=== PATIENT | male | born 1955 | race Caucasian/White ===

== ENCOUNTER → 2016-04-05 | Outpatient (CLI) | payer OTHER ==
[~2016-04-05] MED LIST: APIX5TAB PO; CATHETER FLUSH 10 ML SYR IV PRN; DILT120C53 PO; FAMO20TA3 PO; FINA5TAB6 PO; FLEC100T PO; FLEC50TA PO; HYDR-3820 PO; IBUP-30 PO; LOSA100T28 PO; METO50TA2 PO; REGADENOSON 0.4 MG/5 ML SYR (LEXISCAN) IV ONE; SOTA120T PO; WARF10TA44 PO
--- OUTSIDE RECORDS SUMMARY | 2016-04-05 10:38 | XMS REPORT | Continuity of Care Document ---
Author Author [facility] Organization [facility] Address Unknown Phone Unavailable Care Team Providers Care Telephoto Installer Name Role Phone JAX RUBIN MD PCP Insurance Providers Payer Name Policy Number Subscriber Name Relationship Self Pay Pending Jo Apprv [id number] Faby Rios 18 Self / Same As Patient Advance Directives Directive Response Recorded Date/Time Advance Directives No 02/20/16 4:30pm Health Care Power of Chief Station Engineer No 02/20/16 4:30pm Organ Donor No 02/20/16 4:30pm Resuscitation Status DNR-Pt Request 02/20/16 4:30pm Chief Complaint and Reason for Visit Chief Complaint AFIB WITH RVR Reason for Visit A-fib Problems Active Problems Medical Problem Onset Date Status A-fib Unknown Acute Medications Current Home Medications Medication Dose Units Route Directions Days/Qty Instructions Start Date Famotidine 20 Mg Oral Daily 11/17/15 Finasteride 5 Mg 5 Mg Oral Daily 11/17/15 Hydrocodone/Acetaminophen 1 Each 0.5-1 Tab Oral Every 8HRS as needed for Pain 02/20/16 Warfarin Sodium 10 Mg 10 Mg Oral Daily 02/21/16 Sotalol Hcl 120 Mg 120 Mg Oral Twice A Day 60 02/22/16 Past Home Medications Medication Directions Ordered Status Ibuprofen 200 Mg Tablet, 800 Mg Oral Three Times A Day as needed for Pain Discontinued Losartan Potassium 100 Mg Tablet, 100 Mg Oral Daily 11/17/15 Discontinued Metoprolol Tartrate 50 Mg Tablet, 50 Mg Oral Twice A Day 11/20/15 Discontinued Metoprolol Tartrate 50 Mg Tablet, 50 Mg Oral Twice A Day 02/21/16 Discontinued Social History Social History Problem Response Recorded Date/Time Alcohol Use Rarely Uses 02/20/2016 4:30pm Recreational Drug Use No 02/20/2016 4:30pm Recent Foreign Travel No 02/20/2016 4:39pm Recent Infectious Disease Exposure No 02/20/2016 4:30pm Sexually Transmitted Disease No 02/20/2016 4:30pm HIV/AIDS No 02/20/2016 4:30pm Smoking Status Former Smoker 02/20/2016 4:30pm Type Used Cigarettes 02/22/2016 2:33pm Recent Hopitalizations No 02/20/2016 4:30pm Sexually Transmitted Disease No 02/20/2016 4:30pm Hx Sexually Transmitted Disorders No 01/18/2010 3:25pm Query Response Start Date Stop Date Smoking Status Former Smoker Hospital Discharge Instructions No hospital discharge instructions. Plan of Care Discharge Date 02/22/16 10:20am Disposition IP-[facility] TO CODE Instructions/Education Provided Atrial Fibrillation (DC) Prescriptions See Medication Section Follow-up Orders Ekg Tracing Referrals GAYLE TENORIO MD (Unspecified) - 02/27/16 Address: [address] [place] [id number] [phone] Reason(s) for Referral: 02/27/16 @ 2:20 Care Plan and Goals Functional Status Query Response Date Recorded Patient Orientation Person Place Time Situation February 22, 2016 2:33pm Comprehension Ability Understands Concepts February 22, 2016 8:11am Allergies, Adverse Reactions, Alerts No known allergies. Immunizations Name Given Type FLU TRIvalent 5 years - Adult 02/20/16 Administered Vital Signs Acute Vital Signs Vital Response Date/Time Temperature (Fahrenheit) 98.1 degrees F (97.6 - 99.5) 02/22/2016 8:11am Temperature (Calculated Celsius) 36.61615 degrees C (36.4 - 37.5) 02/22/2016 8:11am Temperature Source Tympanic 02/22/2016 8:11am Pulse Rate (adult) 64 bpm (60 - 90) 02/22/2016 10:05am Respiratory Rate 17 bpm (12 - 24) 02/22/2016 10:05am O2 Sat by Pulse Oximetry 93 % (88 - 100) 02/22/2016 10:05am Blood Pressure 136/77 mm Hg 02/22/2016 10:05am Blood Pressure Mean 96 mm Hg 02/22/2016 10:00am Pain Numeric Pain Scale 0-No Pain 02/21/2016 8:00pm Height (Feet) 5 feet 02/20/2016 4:30pm Height (Inches) 10.00 inches 02/20/2016 4:30pm Height (Calculated Centimeters) 177.898109 cm 02/20/2016 4:30pm Weight (Pounds) 246 pounds 02/22/2016 6:00am Weight (Ounces) 0.7 oz 02/21/2016 6:17am Weight (Calculated Grams) 667577.724 gm 02/22/2016 6:00am Weight (Calculated Kilograms) 111.670501 kilograms 02/22/2016 6:00am Calculated BMI 35.6 02/20/2016 4:30pm Results Laboratory Results Test Name Result Units Flags Reference Collection Date/Time Result Date/ Time Comments White Blood Count 6.4 10^3/uL 4.3-11.0 02/21/2016 4:35am 02/21/2016 6: 27am Red Blood Count 5.89 10^6/uL H 4.35-5.85 02/21/2016 4:35am 02/21/2016 6: 27am Hemoglobin 14.2 G/DL 13.3-17.7 02/21/2016 4:35am 02/21/2016 6:27am Hematocrit 44 % 40-54 02/21/2016 4:35am 02/21/2016 6:27am Mean Corpuscular Volume 74 FL L 80-99 02/21/2016 4:35am 02/21/2016 6: 27am Mean Corpuscular Hemoglobin 24 PG L 25-34 02/21/2016 4:35am 02/21/2016 6: 27am Mean Corpuscular Hemoglobin Concent 32 G/DL 32-36 02/21/2016 4:35am 6:27am Red Cell Distribution Width 15.1 % H 10.0-14.5 02/21/2016 4:35am 2015 6:27am Platelet Count 180 10^3/uL 130-400 02/21/2016 4:35am 02/21/2016 6:27am Mean Platelet Volume 11.8 FL H 7.4-10.4 02/21/2016 4:35am 02/21/2016 6: 27am Neutrophils (%) (Auto) 49 % 42-75 02/21/2016 4:35am 02/21/2016 6:27am Lymphocytes (%) (Auto) 36 % 12-44 02/21/2016 4:35am 02/21/2016 6:27am Monocytes (%) (Auto) 13 % H 0-12 02/21/2016 4:35am 02/21/2016 6:27am Eosinophils (%) (Auto) 2 % 0-10 02/21/2016 4:35am 02/21/2016 6:27am Basophils (%) (Auto) 1 % 0-10 02/21/2016 4:35am 02/21/2016 6:27am Neutrophils # (Auto) 3.1 X 10^3 1.8-7.8 02/21/2016 4:35am 02/21/2016 6: 27am Lymphocytes # (Auto) 2.3 X 10^3 1.0-4.0 02/21/2016 4:35am 02/21/2016 6: 27am Monocytes # (Auto) 0.8 X 10^3 0.0-1.0 02/21/2016 4:35am 02/21/2016 6: 27am Eosinophils # (Auto) 0.1 10^3/uL 0.0-0.3 02/21/2016 4:35am 02/21/2016 6 :27am Basophils # (Auto) 0.0 10^3/uL 0.0-0.1 02/21/2016 4:35am 02/21/2016 6: 27am Prothrombin Time 35.1 SEC H 12.2-14.7 02/22/2016 4:20am 02/22/2016 5: 14am INR Comment 3.5 H 0.8-1.4 02/22/2016 4:20am 02/22/2016 5:14am INTERPRETIVE DATA SUGGESTED THERAPEUTIC RANGE FOR INR'S: VENOUS THROMBOSIS, PULMONARY EMBOLISM, OR PREVENTION OF SYSTEMIC EMBOLISM (EG. IN ATRIAL FIBRILLATION): 2.0 - 3.0 MECHANICAL PROSTHETIC HEART VALVES: 2.5 - 3.5* *NOTE: INR'S UP TO 4.5 MAY BE NECESSARY IN SELECTED GROUPS OF HIGH RISK PATIENTS. [employer] [place] [employer] CONSENSUS CONFERENCE ON ANTITHROMBOTIC THERAPY (2000). Activated Partial Thromboplast Time 60 SEC H 24-35 02/20/2016 5:11pm 5:30pm Sodium Level 137 MMOL/L 135-145 02/21/2016 4:35am 02/21/2016 6:45am Potassium Level 4.5 MMOL/L 3.6-5.0 02/21/2016 4:35am 02/21/2016 6:45am Chloride Level 105 MMOL/L 98-107 02/21/2016 4:35am 02/21/2016 6:45am Carbon Dioxide Level 22 MMOL/L 21-32 02/21/2016 4:35am 02/21/2016 6: 45am Anion Gap 10 MMOL/L 5-14 02/21/2016 4:35am 02/21/2016 6:45am Blood Urea Nitrogen 22 MG/DL H 7-18 02/21/2016 4:35am 02/21/2016 6:45am Creatinine 0.85 MG/DL 0.60-1.30 02/21/2016 4:35am 02/21/2016 6:45am BUN/Creatinine Ratio 26 02/21/2016 4:35am 02/21/2016 6:45am Estimat Glomerular Filtration Rate > 60 02/21/2016 4:35am 2015 6:45am GFR INTERPRETIVE DATA UNITS FOR ESTIMATED GFR (eGFR): mL/min/1.73 M2 REFERENCE RANGE FOR ESTIMATED GFR (eGFR) eGFR NORMAL eGFR >60 MODERATELY DECREASED eGFR 30-59 SEVERLY DECREASED eGFR 15-29 KIDNEY FAILURE <15 (OR DIALYSIS) Glucose Level 102 MG/DL 70-105 02/21/2016 4:35am 02/21/2016 6:45am Calcium Level 9.2 MG/DL 8.5-10.1 02/21/2016 4:35am 02/21/2016 6:45am Total Bilirubin 0.6 MG/DL 0.1-1.0 02/21/2016 4:35am 02/21/2016 6:45am Alkaline Phosphatase 41 U/L 40-136 02/21/2016 4:35am 02/21/2016 6:45am Aspartate Amino Transf (AST/SGOT) 145 U/L H 5-34 02/21/2016 4:35am 2015 6:45am Alanine Aminotransferase (ALT/SGPT) 170 U/L H 0-55 02/21/2016 4:35am 6:45am B-Type Natriuretic Peptide 124.7 PG/ML H <100.0 02/20/2016 5:11pm 2015 5:56pm Total Protein 6.8 G/DL 6.4-8.2 02/21/2016 4:35am 02/21/2016 6:45am Albumin 3.6 G/DL 3.2-4.5 02/21/2016 4:35am 02/21/2016 6:45am Thyroid Stimulating Hormone (TSH) 1.65 UIU/ML 0.35-4.94 02/21/2016 4: 35am 02/21/2016 6:15am Procedures Procedure Status Date Provider(s) Tracing only of electrocardiogram Completed 02/20/16 GAYLE TENORIO MD Transesophageal echocardiography with contrast Active 02/21/16 GAYLE TENORIO MD Limited Doppler echocardiography Completed 02/21/16 GAYLE TENORIO MD Doppler echocardiography color flow mapping Completed 02/21/16 GAYLE TENORIO MD Transesophageal echocardiography Completed 02/21/16 GAYLE TENORIO MD Tracing only of electrocardiogram Completed 02/21/16 GAYLE TENORIO MD Tracing only of electrocardiogram Active 02/22/16 GAYLE TENORIO MD Encounters Encounter Location Arrival/Admit Date Discharge/Depart Date Attending Provider Discharged Inpatient [facility] 02/20/16 4:40pm 10:20am GAYLE TENORIO MD Recent Diagnosis A-fib
[2016-04-05 13:05] VITALS: BP 121/85
--- NOTE | 2016-04-06 12:36 | STRESS TEST ---
PROCEDURE PHYSICIAN: ELIDA JOSUE PHARMACOLOGIC NUCLEAR STRESS TEST REPORT DATE OF PROCEDURE: 04/05/2016 PRIMARY PHYSICIAN: Dr. Balderas. DIAGNOSIS: Shortness of breath. PROCEDURE DETAILS: The patient was brought to the stress level after informed consent was taken. All the risks and complications were explained. Lexiscan stress test was performed after informed consent was taken. Low grade exercise was performed. 0.4 mg of Lexiscan was given according to the protocol. Baseline EKG showed sinus rhythm at 139 bpm. Resting sinus rhythm, atrial fibrillation at about 139 bpm. Blood pressure was 121/8 mmHg. Maximum heart rate was 117 bpm. Blood pressure is 152.[address] changes were noted. There were no arrhythmias. There were no symptoms. Radionuclide Isotope was given at peak vasodilatation. 10.6 mCi of Myoview were given at rest and 30.5 mCi Myoview were given at peak imaging. Review of perfusion imaging showed TID of 1.03 with an EF of 37%. Anterior and apical hypokinesis is noted. There is an apical severe small sized apical fixed defect. There is also inferior apical small size moderate intensity reversible defect. CONCLUSION: 1. Pharmacological stress test is negative for ischemia. 2. Mildly reduced LV systolic function is noted with an EF of 37% ; anterior apical hypokinesis. 3. There seems to be in an apical infarct with clari-infarct ischemia. Clinical correlation is recommended. Job ID: [id number] Dictated Date: 04/05/2016 21:13:21 Wing Commander Date: 04/06/2016 12:27:11 / bhavana MUIR
== END ==
LOC: CARD 10:35
PROVIDERS: ATTEND Internal Medicine Interventional Cardiology
DX: I48.0 Paroxysmal atrial fibrillation (principal); I10 Essential (primary) hypertension; G47.30 Sleep apnea, unspecified; R06.02 Shortness of breath
CPT/HCPCS: 78452; 93017

== ENCOUNTER 2016-04-12 10:33 | Day surgery (SDC) | payer OTHER ==
[~2016-04-12] VITALS: Ht 177.8 cm; Wt 108.0 kg
[2016-04-12] VITALS (11 sets, daily range): BP systolic 100–153; BP diastolic 58–118
[~2016-04-12 10:33] MED LIST changes: -APIX5TAB PO; -CATHETER FLUSH 10 ML SYR IV PRN; -DILT120C53 PO; -FLEC100T PO; -FLEC50TA PO; -REGADENOSON 0.4 MG/5 ML SYR (LEXISCAN) IV ONE
--- OUTSIDE RECORDS SUMMARY | 2016-04-12 10:36 | XMS REPORT | Continuity of Care Document ---
Author Author [facility] Organization [facility] Address Unknown Phone Unavailable Care Team Providers Care System Support Developer Name Role Phone JAX RUBIN MD PCP Insurance Providers Payer Name Policy Number Subscriber Name Relationship Self Pay Pending Jo Apprv [id number] Faby Rios 18 Self / Same As Patient Advance Directives Directive Response Recorded Date/Time Advance Directives No 02/20/16 4:30pm Health Care Power of Stereotype Caster No 02/20/16 4:30pm Organ Donor No 02/20/16 [...] of Care Discharge Date 02/22/16 10:20am Disposition IP-[facility] TO CODE Instructions/Education Provided Atrial Fibrillation (DC) Prescriptions See Medication Section Follow-up Orders Ekg Tracing Referrals GAYLE TENORIO MD (Unspecified) - 02/27/16 Address: [address] [place] [id number] [phone] Reason(s) for Referral: 02/27/16 @ 2:20 Care [...] - 99.5) 02/22/2016 8:11am Temperature (Calculated Celsius) 36.92129 degrees C (36.4 - 37.5) 02/22/2016 8:11am [...] 10.00 inches 02/20/2016 4:30pm Height (Calculated Centimeters) 177.715330 cm 02/20/2016 4:30pm Weight (Pounds) 246 pounds 02/22/2016 6:00am Weight (Ounces) 0.7 oz 02/21/2016 6:17am Weight (Calculated Grams) 858641.724 gm 02/22/2016 6:00am Weight (Calculated Kilograms) 111.441838 kilograms 02/22/2016 6:00am Calculated BMI 35.6 02/20/2016 [...] SELECTED GROUPS OF HIGH RISK PATIENTS. [employer] [place] [employer] CONSENSUS CONFERENCE ON [...] Tracing only of electrocardiogram Completed 02/20/16 GAYLE TENOROI MD Transesophageal echocardiography with contrast Active 02/21/16 [...] Discharge/Depart Date Attending Provider Discharged Inpatient [facility] 02/20/16 4:40pm 10:20am GAYLE TENORIO MD Recent Diagnosis A-fib
--- OUTSIDE RECORDS SUMMARY | 2016-04-12 10:37 | XMS REPORT | Continuity of Care Document ---
Author Author [facility] Organization [facility] Address Unknown Phone Unavailable Care Team Providers Care On Car Supervisor Name Role Phone JAX RUBIN MD PCP Insurance Providers Payer Name Policy Number Subscriber Name Relationship Self Pay Pending Jo Apprv [id number] Faby Rios 18 Self / Same As Patient Advance Directives Directive Response Recorded Date/Time Advance Directives No 02/20/16 4:30pm Health Care Power of Security Services Manager No 02/20/16 4:30pm Organ Donor No 02/20/16 [...] of Care Discharge Date 02/22/16 10:20am Disposition IP-[facility] TO CODE Instructions/Education Provided Atrial Fibrillation (DC) Prescriptions See Medication Section Follow-up Orders Ekg Tracing Referrals GAYLE TENORIO MD (Unspecified) - 02/27/16 Address: [address] [place] [id number] [phone] Reason(s) for Referral: 02/27/16 @ 2:20 Care [...] - 99.5) 02/22/2016 8:11am Temperature (Calculated Celsius) 36.89042 degrees C (36.4 - 37.5) 02/22/2016 8:11am [...] 10.00 inches 02/20/2016 4:30pm Height (Calculated Centimeters) 177.369311 cm 02/20/2016 4:30pm Weight (Pounds) 246 pounds 02/22/2016 6:00am Weight (Ounces) 0.7 oz 02/21/2016 6:17am Weight (Calculated Grams) 088898.724 gm 02/22/2016 6:00am Weight (Calculated Kilograms) 111.221957 kilograms 02/22/2016 6:00am Calculated BMI 35.6 02/20/2016 [...] SELECTED GROUPS OF HIGH RISK PATIENTS. [employer] [place] [employer] CONSENSUS CONFERENCE ON [...] Discharge/Depart Date Attending Provider Discharged Inpatient [facility] 02/20/16 4:40pm 10:20am GAYLE TENORIO MD Recent Diagnosis A-fib
[2016-04-12] MEDS ORDERED: LIDOCAINE 1% INJ 20 ML (XYLOCAINE) VIAL ONE (10:40)
[2016-04-12] MEDS ORDERED: NS IV 1000 ML 1,000 ML ONE (10:41)
[2016-04-12] MEDS ORDERED: HEParin (CATH LAB) 2,000 ML IV ONE (10:41)
[2016-04-12 11:18] LABS: MEAN PLATELET VOLUME 11.1 FL (7.4-10.4); RED BLOOD COUNT 6.72 10^6/uL (4.35-5.85); RED CELL DISTRIBUTION WIDTH 15.7 % (10.0-14.5); WHITE BLOOD COUNT 7.3 10^3/uL (4.3-11.0)
[2016-04-12] MEDS: NS IV 1000 ML 1,000 ML IV SCH ×2 (11:20→15:11)
[2016-04-12 11:29] LABS: PROTHROMBIN TIME PATIENT 12.7 SEC (12.2-14.7)
[2016-04-12 11:37] LABS: ALANINE AMINOTRANSFERASE 219 U/L (0-55); ALBUMIN 3.9 G/DL (3.2-4.5); ANION GAP 7 MMOL/L (5-14); ASPARTATE AMINO TRANSFERASE 178 U/L (5-34); BILIRUBIN,TOTAL 0.6 MG/DL (0.1-1.0); BLOOD UREA NITROGEN 15 MG/DL (7-18); BUN/CREATININE RATIO 16; CALCIUM 9.1 MG/DL (8.5-10.1); CARBON DIOXIDE 27 MMOL/L (21-32); CHLORIDE 103 MMOL/L (98-107); CHOLESTEROL 152 MG/DL (< 200); CREATININE SERUM 0.95 MG/DL (0.60-1.30); DIRECT LDL 106 MG/DL (1-129); GFR ESTIMATED > 60; GLUCOSE 94 MG/DL (70-105); POTASSIUM 4.2 MMOL/L (3.6-5.0); SODIUM 137 MMOL/L (135-145); TOTAL PROTEIN 7.5 G/DL (6.4-8.2); TRIGLYCERIDES 115 MG/DL (<150); VLDL CHOLESTEROL 23 MG/DL (5-40)
[2016-04-12] MEDS ORDERED: SOTA120T PO (11:51)
[2016-04-12] MEDS ORDERED: APIX5TAB PO (11:51)
[2016-04-12] MEDS ORDERED: FLU TRIvalent (5 YOA+) 2016-17 (AFLURIA) 0.5 ML IM ONE (12:00)
[2016-04-12] MEDS ORDERED: fentaNYL INJECTION 100 MCG/2 ML AMP ONE (13:34)
[2016-04-12] MEDS ORDERED: diphenhydrAMINE 50 MG/ML INJ (BENADRYL) ONE (13:35)
[2016-04-12] MEDS ORDERED: VERAPAMIL 5 MG/2 ML (CALAN) VIAL IV ONE ×2 (13:35→15:10)
[2016-04-12] MEDS ORDERED: MIDAZOLAM 5 MG/5 ML (VERSED) VIAL ONE (13:35)
[2016-04-12] MEDS ORDERED: NITROGLYCERIN DRIP 25 MG/D5W 250 ML IV ONE (13:35)
[2016-04-12] MEDS ORDERED: HEParin 1000 UNIT/ML (10ML VIAL) FOR BOLUS ONE (13:35)
[2016-04-12] MEDS ORDERED: meTOprolol 5 MG/5 ML (LOPRESSOR) VIAL ONE (14:52)
--- NOTE | 2016-04-12 15:23 | Cardiac Procedure Note-CS/ASA ---
Pre-Procedure Note Pre-Op Procedure Note H&P Reviewed The H&P was reviewed, patient examined and no changes noted. Date H&P Reviewed: Apr 12, 2016 Time H&P Reviewed: 13:00 Conscious Sedation Pre-Proced Time Reviewed: 13:00 ASA Class: 2 Airway Mallampati Classification: ([place] appropriate class) I. II. III, IV Lungs Heart ASA score ASA 1: a normal healthy patient ASA 2: a patient with a mild systemic disease (mid diabetes, controlled hypertension, obesity ASA 3: a patient with a severe systemic disease that limits activity (angina , COPD, prior Myocardial infarction) ASA 4: a patient with an incapacitating disease that is a constant threat to life (CHF, renal failure) ASA 5: a moribund patient not expected to survive 24 hrs. (ruptured aneurysm) ASA 6: a declared brain patient whose organs are being harvested. For emergent operations, add the letter E after the classification Grade 1 Sedation Plan: Analgesia, Amnesia, Plan communicated to team members, Discussed options with patient/fam, Discussed risks with patient/fam Note The patient is an appropriate candidate to undergo the planned procedure, sedation, and anesthesia. The patient immediately re-assessed prior to indication. Roger JOSUE MD Apr 12, 2016 3:23 pm
[2016-04-12] MEDS ORDERED: NS IV 1000 ML 1,000 ML IV SCH (15:24)
--- NOTE | 2016-04-12 15:24 | Progress Note-Post Operative ---
Post-Operative Progess Note Pre-Operative Diagnosis AF, positive nuclear stress test Post-Operative Diagnosis patent epicardial coronary arteries Post-Op Procedure Note Date of Procedure: Apr 12, 2016 Name of Procedure: coronary angiography, [facility] Procedure Note/Findings patent arteries, LVEDP 22mmhg Anesthesia Type local anesthesia, conscious sedation Estimated blood loss (mL): 10 cc Packing: none Specimen(s) collected none Roger JOSUE MD Apr 12, 2016 3:24 pm
--- NOTE | 2016-04-12 15:28 | Discharge Inst-Post CATH ---
Discharge Inst-CATH Post Cardiac Cath D/C Inst Follow Up/Plan follow up with Dr Sagastume 3-4 weeks CARDIAC CATH DISCHARGE INSTRUCTIONS *Hold Metformin for 48 hours post heart cath. ACTIVITY * Go Home directly and rest. * Limit activity of the leg (or wrist if it was used) for 7 days including aerobics, swimming, jogging, bicycling, etc. * Restrict stair-climbing for 7 days if possible, if not, climb up with your non -cath leg, then bring together on the same step. * Avoid lifting, pushing, pulling or excessive movement of the affected extremity for 7 days. * Customary sexual activity may be resumed after 2 days-use caution not to use a position that strains or causes pain to the affected extremity. * No driving for 24 hours. * NO SMOKING. * Avoid straining for bowel movements for 7 days. * Gentle walking on level ground is allowed. * Returning to work will depend on the type of procedure and the results. Your doctor will discuss this with you. CALL YOUR DOCTOR FOR ANY OF THE FOLLOWING: *If bleeding from the puncture site occurs- Apply gentle pressure to site with clean cloth and call your doctor or EMS. * If a knot or lump forms under the skin, increases in size, or causes pain. * If bruising appears to be worsening or moving further down your leg instead of disappearing. * Temperature above 101 F. CARE OF YOUR GROIN INCISION; * Bruising or purple discoloration of the skin near the puncture site is common. * You may shower only, no bathtub bathing for 5 days. Be careful to avoid slipping as your leg may feel stiff. * If a closure device was used on your femoral artery, please see the attached guide regarding care of the device and your leg. * REMOVE the dressing from your groin the next day after your procedure in the shower. CARE OF YOUR WRIST INCISION; * Bruising or purple discoloration of the skin near the puncture site is common. * You may shower. * DO NOT submerge wrist. * Remove dressing in 24 hours. Roger SAGASTUME MD Apr 12, 2016 3:28 pm
[2016-04-12] MEDS ORDERED: PATIENT MAY USE OWN MEDS, ALL PO SCH (15:30)
--- NOTE | 2016-04-12 15:30 | Cardiology Discharge Summary ---
Diagnosis/Chief Complaint Date of Admission 04/12/2016 Date of Discharge 04/12/2016 Admission Diagnosis atrial fibrillation, abnormal nuclear stress test Final/Discharge Diagnosis atrial fibrillation, patent epicardial coronary arteries Chief Complaint/HPI Chief Complaint/HPI shortness of breath, palpitations Discharge Summary Procedures None. Discharge Physical Examination stable Hospital Course stable Pending Labs Laboratory Tests 04/12/16 11:11: Activated Partial Thromboplast Time 30, Alanine Aminotransferase (ALT/SGPT) 219 , Albumin 3.9, Alkaline Phosphatase 60, Anion Gap 7, Aspartate Amino Transf (AST /SGOT) 178, BUN/Creatinine Ratio 16, Blood Urea Nitrogen 15, Calcium Level 9.1, Carbon Dioxide Level 27, Chloride Level 103, Cholesterol Level 152, Creatinine 0.95, Estimat Glomerular Filtration Rate > 60, Glucose Level 94, HDL Cholesterol 26, Hematocrit 50, Hemoglobin 15.9, INR Comment 1.0, LDL Cholesterol Direct 106, Mean Corpuscular Hemoglobin 24, Mean Corpuscular Hemoglobin Concent 32, Mean Corpuscular Volume 74, Mean Platelet Volume 11.1, Platelet Count 216, Potassium Level 4.2, Prothrombin Time 12.7, Red Blood Count 6.72, Red Cell Distribution Width 15.7, Sodium Level 137, Total Bilirubin 0.6, Total Protein 7.5, Triglycerides Level 115, VLDL Cholesterol 23, White Blood Count 7.3 Discussion & Recommendations Discussion patent epicardial coronary arteries, atrial fibrillation management. Follow up appt.: Dr. Sagastume in 3-4 weeks Dicharge Diet: Cardiac Diet Activity as Tolerated: Yes Home Medications Reviewed patient Home Medication Reconciliation Form Discharge Home Medications: Reviewed and agree with Discharge Medication list on patient's Discharge Instruction sheet Condition at discharge stable Instructions to patient/family follow up with Dr Sagastume 3-4 weeks Roger SAGASTUME MD Apr 12, 2016 3:30 pm
--- NOTE | 2016-04-13 08:34 | CARDIAC CATHETERIZATION ---
PROCEDURE PHYSICIAN: ELIDA JOSUE DATE OF PROCEDURE: 04/12/2016 REFERRING PHYSICIAN: Dr. Eastman. INDICATION: Atrial fibrillation, abnormal nuclear stress test. PREOPERATIVE DIAGNOSIS: Atrial fibrillation, abnormal nuclear stress test. POSTOPERATIVE DIAGNOSES: Atrial fibrillation, patent epicardial coronary arteries. HISTORY: Mr. Rios is a 60-year-old gentleman with a history of atrial fibrillation. The decision was to pursue rhythm control therapy. Therefore class 1C antiarrhythmic therapy was recommended. Coronary artery disease needed to be ruled before we started antiarrhythmic therapy. Nuclear stress test was performed, which showed reversible ischemia. Coronary angiography was therefore recommended. PROCEDURE PERFORMED: 1. Right upper extremity angiography. 2. Coronary angiography. 3. Left heart catheterization. COMPLICATIONS: None. SPECIMENS: None. ESTIMATED BLOOD LOSS: 10 mL. FINAL RESULTS: Excellent ANTICOAGULATION: Heparin. CONTRAST: 90 mL of Omnipaque. FLUOROSCOPY TIME: 6.8 minutes. FLUOROSCOPY DOSE: 462 mGy PROCEDURE DETAILS: The patient was brought to the Crisis Intervention Counselor after informed consent was taken. All the risks and complications were explained in detail. The patient was draped and prepped in the usual sterile fashion. We gained access in the right radial artery with a 6-[place] sheath. Catheterization was performed with a Jorge catheter. We had difficulty in advancing the guidewire therefore right upper extremity angiography was performed. FINDINGS: 1. Left main: Patent. 2. LAD: Small vessel however, there was no significant focal stenosis. 3. Left circumflex artery: Dominant, patent. 4. RCA: Nondominant, no significant disease. 5. Cardiac catheterization: Aortic pressure 107/83 mmHg. LV pressure 102/15 mmHg. LVEDP 22 mmHg. LV gram was done during atrial fibrillation however which showed preserved LV systolic function. There was no gradient across the aortic valve. There is no significant wall motion abnormalities. 6. Right upper extremity angiogram was performed due to a difficulty in advancing the guidewire. Left upper extremity angiogram showed significant tortuosity in the branch of the brachial artery with spasm noted in the radial artery as well as in the branch to the brachial artery. CONCLUSION: 1. Patent epicardial coronary artery disease. 2. Atrial fibrillation with rapid ventricular rate. 3. Continue primary prevention therapy for cardiovascular disease. Job ID: [id number] Dictated Date: 04/12/2016 16:24:46 Contract Administrator Date: 04/13/2016 08:23:01 / bhavana MUIR
== END 2016-04-12 18:45 | disposition home or self-care (01) ==
LOC: CATH 10:33 → ICU 15:40 → CATH 18:45
PROVIDERS: ATTEND Internal Medicine Interventional Cardiology
DX: R94.39 Abnormal result of other cardiovascular function study (principal); I48.91 Unspecified atrial fibrillation; I10 Essential (primary) hypertension; G47.30 Sleep apnea, unspecified; Z79.01 Long term (current) use of anticoagulants; Z79.899 Other long term (current) drug therapy; Z87.891 Personal history of nicotine dependence
CPT/HCPCS: 36415; 80053; 80061; 85027; 85610; 85730; 87081; 93458

== ENCOUNTER 2016-05-03 08:09 | Day surgery (SDC) | payer OTHER ==
[~2016-05-03] VITALS: Ht 177.8 cm; Wt 108.0 kg
[~2016-05-03 08:09] MED LIST changes: +APIX5TAB PO
--- OUTSIDE RECORDS SUMMARY | 2016-05-03 08:13 | XMS REPORT | Continuity of Care Document ---
Author Author [facility] Organization [facility] Address Unknown Phone Unavailable Care Team Providers Care Spa Manager Name Role Phone JAX RUBIN MD PCP Insurance Providers Payer Name Policy Number Subscriber Name Relationship Self Pay Pending Jo Apprv [id number] Faby Rios 18 Self / Same As Patient Advance Directives Directive Response Recorded Date/Time Advance Directives No 04/12/16 11:18am Health Care Power of Provider Scribe No 04/12/16 11:18am Organ Donor No 04/12/16 11:18am Resuscitation Status Full Code 04/12/16 11:18am Problems Active Problems Medical Problem Onset Date Status A-fib Unknown Acute Medications Current Home Medications Medication Dose Units Route Directions Days/Qty Instructions Start Date Famotidine 20 Mg Oral Bedtime as needed for Indigestion 11/17/15 Hydrocodone/Acetaminophen 1 Each 0.5-1 Tab Oral Every 8HRS as needed for Pain 02/20/16 Sotalol Hcl 120 Mg 120 Mg Oral Twice A Day 04/12/16 Apixaban 5 Mg 5 Mg Oral Twice A Day 04/12/16 Past Home Medications Medication Directions Ordered Status Ibuprofen 200 Mg Tablet, 800 Mg Oral Three Times A Day as needed for Pain Discontinued Finasteride 5 Mg Tablet, 5 Mg Oral Daily 11/17/15 Discontinued Losartan Potassium 100 Mg Tablet, 100 Mg Oral Daily 11/17/15 Discontinued Metoprolol Tartrate 50 Mg Tablet, 50 Mg Oral Twice A Day 11/20/15 Discontinued Metoprolol Tartrate 50 Mg Tablet, 50 Mg Oral Twice A Day 02/21/16 Discontinued Warfarin Sodium 10 Mg Tablet, 10 Mg Oral Daily 02/21/16 Discontinued Sotalol Hcl 120 Mg Tablet, 120 Mg Oral Twice A Day 02/22/16 Discontinued Social History Social History Problem Response Recorded Date/Time Recent Foreign Travel No 04/12/2016 11:19am Recent Infectious Disease Exposure No 04/12/2016 11:19am Sexually Transmitted Disease No 02/20/2016 4:30pm HIV/AIDS No 02/20/2016 4:30pm Smoking Status Former Smoker 04/12/2016 11:19am Type Used Cigarettes 04/12/2016 7:48pm Recent Hopitalizations No 02/20/2016 4:30pm Sexually Transmitted Disease No 02/20/2016 4:30pm Hx Sexually Transmitted Disorders No 01/18/2010 3:25pm Query Response Start Date Stop Date Smoking Status Former Smoker Hospital Discharge Instructions Patient Instructions Physician Instructions Follow Up/Plan follow up with Dr Josue 3-4 weeks CARDIAC CATH DISCHARGE INSTRUCTIONS *Hold Metformin for 48 hours post heart cath. ACTIVITY * Go Home directly and rest. * Limit activity of the leg (or wrist if it was used) for 7 days including aerobics, swimming, jogging, bicycling, etc. * Restrict stair-climbing for 7 days if possible, if not, climb up with your non-cath leg, then bring together on the same step. * Avoid lifting, pushing, pulling or excessive movement of the affected extremity for 7 days. * Customary sexual activity may be resumed after 2 days-use caution not to use a position that strains or causes pain to the affected extremity. * No driving for 24 hours. * NO SMOKING. * Avoid straining for bowel movements for 7 days. * Gentle walking on level ground is allowed. * Returning to work will depend on the type of procedure and the results. Your doctor will discuss this with you. CALL YOUR DOCTOR FOR ANY OF THE FOLLOWING: *If bleeding from the puncture site occurs- Apply gentle pressure to site with clean cloth and call your doctor or EMS. * If a knot or lump forms under the skin, increases in size, or causes pain. * If bruising appears to be worsening or moving further down your leg instead of disappearing. * Temperature above 101 F. CARE OF YOUR GROIN INCISION; * Bruising or purple discoloration of the skin near the puncture site is common. * You may shower only, no bathtub bathing for 5 days. Be careful to avoid slipping as your leg may feel stiff. * If a closure device was used on your femoral artery, please see the attached guide regarding care of the device and your leg. * REMOVE the dressing from your groin the next day after your procedure in the shower. CARE OF YOUR WRIST INCISION; * Bruising or purple discoloration of the skin near the puncture site is common. * You may shower. * DO NOT submerge wrist. * Remove dressing in 24 hours. Plan of Care Discharge Date 04/12/16 6:45pm Instructions/Education Provided Heart Healthy Diet Prescriptions See Medication Section Functional Status Query Response Date Recorded Patient Orientation Person Place Time Situation Normal For Age April 12, 2016 7:48pm Allergies, Adverse Reactions, Alerts No known allergies. Immunizations No immunization records. Vital Signs Acute Vital Signs Vital Response Date/Time Temperature (Fahrenheit) 98.4 degrees F (97.6 - 99.5) 04/12/2016 6:45pm Temperature (Calculated Celsius) 36.03055 degrees C (36.4 - 37.5) 04/12/2016 3:45pm Temperature Source Tympanic 04/12/2016 6:45pm Pulse Rate (adult) 89 bpm (60 - 90) 04/12/2016 6:45pm Respiratory Rate 20 bpm (12 - 24) 04/12/2016 6:45pm O2 Sat by Pulse Oximetry 98 % (88 - 100) 04/12/2016 6:45pm Blood Pressure 128/61 mm Hg 04/12/2016 6:45pm Blood Pressure Mean 83 mm Hg 04/12/2016 6:30pm Pain Numeric Pain Scale 0-No Pain 04/12/2016 6:45pm Height (Feet) 5 feet 04/12/2016 11:18am Height (Inches) 10.00 inches 04/12/2016 11:18am Height (Calculated Centimeters) 177.450525 cm 04/12/2016 11:18am Weight (Pounds) 238 pounds 04/12/2016 11:18am Weight (Ounces) 0.0 oz 04/12/2016 11:18am Weight (Calculated Grams) 782043.99 gm 04/12/2016 11:18am Weight (Calculated Kilograms) 107.825864 kilograms 04/12/2016 11:18am Calculated BMI 34.2 04/12/2016 11:18am Capillary Refill Capillary Refill Less Than 3 Seconds 04/12/2016 6:40pm Results Pending Laboratory Results Test Name Collection Date/Time Procedures No known history of procedures. Encounters Encounter Location Arrival/Admit Date Discharge/Depart Date Attending Provider Departed [facility] 04/12/16 10:33am 04/12/16 6:45pm Roger JOSUE MD Registered Clinic [facility] 04/05/16 10:35am Roger JOSUE MD
--- OUTSIDE RECORDS SUMMARY | 2016-05-03 08:13 | XMS REPORT | Continuity of Care Document ---
Author Author [facility] Organization [facility] Address Unknown Phone Unavailable Care Team Providers Care Svp Digital Ad Sales Name Role Phone JAX RUBIN MD PCP Insurance Providers Payer Name Policy Number Subscriber Name Relationship Self Pay Pending Jo Apprv [id number] Faby Rios 18 Self / Same As Patient Advance Directives Directive Response Recorded Date/Time Advance Directives No 04/12/16 11:18am Health Care Power of Wire Machine Cutter No 04/12/16 11:18am Organ Donor No 04/12/16 [...] - 99.5) 04/12/2016 6:45pm Temperature (Calculated Celsius) 36.60400 degrees C (36.4 - 37.5) 04/12/2016 3:45pm [...] 10.00 inches 04/12/2016 11:18am Height (Calculated Centimeters) 177.025962 cm 04/12/2016 11:18am Weight (Pounds) 238 pounds 04/12/2016 11:18am Weight (Ounces) 0.0 oz 04/12/2016 11:18am Weight (Calculated Grams) 157526.99 gm 04/12/2016 11:18am Weight (Calculated Kilograms) 107.635706 kilograms 04/12/2016 11:18am Calculated BMI 34.2 04/12/2016 11:18am Capillary Refill Capillary Refill Less Than 3 Seconds 04/12/2016 6:40pm Results Pending Laboratory Results Test Name Collection Date/Time Procedures No known history of procedures. Encounters Encounter Location Arrival/Admit Date Discharge/Depart Date Attending Provider Departed [facility] 04/12/16 10:33am 04/12/16 6:45pm Roger JOSUE MD Registered Clinic [facility] 04/05/16 10:35am Roger JOSUE MD
[2016-05-03] MEDS ORDERED: NS IV 1000 ML 1,000 ML ONE (08:19)
[2016-05-03 08:35] VITALS: BP 150/116
[2016-05-03] MEDS ORDERED: proPOfol 200 MG/20 ML (DIPRIVAN) VIAL IV ONE (08:45)
[2016-05-03] MEDS ORDERED: NS IV 1000 ML 1,000 ML IV SCH (08:45)
[2016-05-03] MEDS ORDERED: MIDAZOLAM 5 MG/5 ML (VERSED) VIAL ONE (08:47)
[2016-05-03] MEDS ORDERED: DILT120C53 PO (08:52)
[2016-05-03 09:45] VITALS: BP 135/103
[2016-05-03] MEDS ORDERED: FLU TRIvalent (5 YOA+) 2016-17 (AFLURIA) 0.5 ML IM ONE (09:45)
[2016-05-03 09:52] VITALS: BP 126/87
--- NOTE | 2016-05-03 09:56 | Progress Note-Standard ---
Standard Progress Note Progress Notes/Assess & Plan Progress/Assessment & Plan consult for sedation for cardioversion pt chart reviewed 60mg propofol and 2mg versed given iv. pt tolerated procedure well start time 45 end time 50 report to vianey corn lab technician. airway intact KVNG SALAZAR CRNA May 03, 2016 09:56
[2016-05-03 10:03] VITALS: BP 102/62
[2016-05-03 10:54] VITALS: BP 103/72
--- NOTE | 2016-05-03 14:20 | Cardiac Procedure Note-CS/ASA ---
Pre-Procedure Note Pre-Op Procedure Note H&P Reviewed The H&P was reviewed, patient examined and no changes noted. Date H&P Reviewed: May 03, 2016 Time H&P Reviewed: 08:30 Conscious Sedation Pre-Proced Time Reviewed: 08:30 ASA Class: 3 Airway Mallampati Classification: (grand traverse appropriate class) I. II. III, IV Lungs Heart ASA score ASA 1: a normal healthy patient ASA 2: a patient with a mild systemic disease (mid diabetes, controlled hypertension, obesity ASA 3: a patient with a severe systemic disease that limits activity (angina , COPD, prior Myocardial infarction) ASA 4: a patient with an incapacitating disease that is a constant threat to life (CHF, renal failure) ASA 5: a moribund patient not expected to survive 24 hrs. (ruptured aneurysm) ASA 6: a declared brain patient whose organs are being harvested. For emergent operations, add the letter E after the classification Grade 1 Sedation Plan: Analgesia, Amnesia, Plan communicated to team members, Discussed options with patient/fam, Discussed risks with patient/fam Note The patient is an appropriate candidate to undergo the planned procedure, sedation, and anesthesia. The patient immediately re-assessed prior to indication. Roger JOSUE MD May 03, 2016 2:20 pm
--- NOTE | 2016-05-03 14:21 | Progress Note-Post Operative ---
Post-Operative Progess Note Pre-Operative Diagnosis atrial fibrillation Post-Operative Diagnosis direct external electrical cardioversion, converted to sinus rhythm. Post-Op Procedure Note Date of Procedure: May 03, 2016 Name of Procedure: direct external electrical cardioversion Procedure Note/Findings presented with atrial fibrillation with rapid ventricular rate,successful 200 J synchronized shock, converted to sinus rhythm. Normal neurological exam on discharge. Anesthesia Type please see anesthesia note Estimated blood loss (mL): none Packing: none Specimen(s) collected none Roger JOSUE MD May 03, 2016 2:21 pm
--- NOTE | 2016-05-06 23:27 | PROCEDURE REPORT ---
PROCEDURE PHYSICIAN: ELIDA JOSUE DATE OF PROCEDURE: 05/03/2016 DIRECT EXTERNAL ELECTRICAL CARDIOVERSION: INDICATION: Atrial fibrillation with rapid ventricular rate. PREOPERATIVE DIAGNOSIS: Atrial fibrillation with rapid ventricular rate. POSTOPERATIVE DIAGNOSIS: Sinus rhythm, successful electrical cardioversion. HISTORY: Mr. Rios is a 60-year-old gentleman with history of atrial fibrillation with rapid ventricular rate. He was referred for management and evaluation of atrial fibrillation. He was started on sotalol therapy. She was also on oral anticoagulation uninterrupted for at least a month. Elective direct electrical cardioversion was planned. ANESTHESIA: By anesthesia service. COMPLICATIONS: None. SPECIMENS: None. CONTRAST: None. FLUOROSCOPY: None. PROCEDURE DETAILS: The patient was brought to the [facility] after informed consent was taken. All the risks and complications were explained including the risk of stroke. At electrical cardioversion was carried out with anesthesia support with propofol. 200 joules of synchronized shock was delivered through external patches which promptly restore sinus rhythm. The patient tolerated the procedure well. The patient did not have any neurological complication. CONCLUSION: 1. Successful cardioversion. 2. Continue oral anticoagulation and sotalol. 3. Follow-up in the office. Job ID: [id number] Dictated Date: 05/03/2016 14:28:11 Running Specialist Date: 05/06/2016 23:24:56 / [email or web address]
== END 2016-05-03 10:58 | disposition home or self-care (01) ==
LOC: CATH 08:09
PROVIDERS: ATTEND Internal Medicine Interventional Cardiology
DX: I48.91 Unspecified atrial fibrillation (principal); Z79.01 Long term (current) use of anticoagulants; Z79.899 Other long term (current) drug therapy; Z87.891 Personal history of nicotine dependence
CPT/HCPCS: 92960; 93005

== ENCOUNTER 2016-05-29 10:30 | Day surgery (SDC) | payer OTHER ==
[~2016-05-29] VITALS: Ht 177.8 cm; Wt 111.6 kg
[2016-05-29] VITALS (12 sets, daily range): BP systolic 109–175; BP diastolic 61–132
[~2016-05-29 10:30] MED LIST changes: +DILT120C53 PO; +PATIENT MAY USE OWN MEDS, ALL MC SCH
--- OUTSIDE RECORDS SUMMARY | 2016-05-29 10:59 | XMS REPORT | Continuity of Care Document ---
Author Author [facility] Organization [facility] Address Unknown Phone Unavailable Care Team Providers Care Audio Visual Manager Name Role Phone JAX RUBIN MD PCP Insurance Providers Payer Name Policy Number Subscriber Name Relationship Self Pay Pending Jo Apprv [id number] Faby Rios 18 Self / Same As Patient Advance Directives Directive Response Recorded Date/Time Advance Directives No 04/12/16 11:18am Health Care Power of Business Account Manager No 04/12/16 11:18am Organ Donor No 04/12/16 [...] - 99.5) 04/12/2016 6:45pm Temperature (Calculated Celsius) 36.15704 degrees C (36.4 - 37.5) 04/12/2016 3:45pm [...] 10.00 inches 04/12/2016 11:18am Height (Calculated Centimeters) 177.054504 cm 04/12/2016 11:18am Weight (Pounds) 238 pounds 04/12/2016 11:18am Weight (Ounces) 0.0 oz 04/12/2016 11:18am Weight (Calculated Grams) 652559.99 gm 04/12/2016 11:18am Weight (Calculated Kilograms) 107.957309 kilograms 04/12/2016 11:18am Calculated BMI 34.2 04/12/2016 11:18am Capillary Refill Capillary Refill Less Than 3 Seconds 04/12/2016 6:40pm Results Pending Laboratory Results Test Name Collection Date/Time Procedures No known history of procedures. Encounters Encounter Location Arrival/Admit Date Discharge/Depart Date Attending Provider Departed Surgical Day [facility] 04/12/16 10:33am 04/12/16 6:45pm Roger JOSUE MD Registered Clinic [facility] 04/05/16 10:35am Roger JOSUE MD
[2016-05-29] MEDS ORDERED: CATHETER FLUSH 10 ML SYR IV PRN (11:00)
[2016-05-29] MEDS ORDERED: FLU TRIvalent (5 YOA+) 2016-17 (AFLURIA) 0.5 ML IM ONE (11:30)
[2016-05-29] MEDS: DILTIAZEM DRIP 100 MG in SODIUM CHLORIDE (ADD-VANTAGE) 100 ML IV SCH ×2 (11:37→17:26)
[2016-05-29] MEDS ORDERED: DILTIAZEM 25 MG/5 ML INJ (CARDIZEM) VIAL ONE (12:09)
[2016-05-29] MEDS: APIXABAN 5 MG (ELIQUIS) TABLET PO NR ×3 (12:30→17:31)
[2016-05-29] MEDS: FLECAINIDE 50 MG TAB PO SCH ×3 (12:30→20:16)
--- NOTE | 2016-05-29 13:16 | Electrophysiology Consultation ---
HPI-Cardiology Cardiology Consultation: Date of Consultation 05/29/16 Date of Admission Attending Physician Mable Eastman MD Admitting Physician Chirag Balderas MD Consulting Physician Roger SAGASTUME MD HPI: Chief Complaint: Palpitations This is a 60-year-old gentleman with history of paroxysmal atrial fibrillation on flecainide and Cardizem. He presents to Dr. Eastman's office with atrial fibrillation with rapid ventricular rate. Direct admission for further management. Patient complains of palpitations, however, denies any syncope, near-syncope, chest pain or shortness of breath. Review of Systems-Cardiology Review of Systems Constitutional: No As described under HPI, No no symptoms reported, No chills, No fever, No lightheadedness, No malaise, No tiredness, No weight loss, No weight gain, No other Eyes: No As described under HPI, No no symptoms reported, No blindness, No blurred vision, No contact lenses, No drainage, No decreased acuity, No foreign body sensation, No glasses, No inflammation, No pain, No photophobia, No previous injury, No shadows, No tunnel vision, No other, No vision change Ears/Nose/Throat: No As described under HPI, No no symptoms reported, No chronic hearing loss, No epistaxis, No ear discharge, No ear pain, No loose teeth, No mouth pain, No mouth swelling, No nasal drainage, No nose pain, No recent hearing loss, No throat pain, No throat swelling, No ulcerations, No other Respiratory: No no symptoms reported, No As described under HPI, No cough, No orthopnea, No shortness of breath, No SOB with excertion, No SOB at rest, No stridor, No wheezing, No other Cardiovascular: irregular heart rate palpitations Gastrointestinal: No no symptoms reported, No As described under HPI, No abdomen distended, No abdominal pain, No blood streaked bowels, No constipation , No diarrhea, No difficulty swallowing, No nausea, No poor appetite, No poor fluid intake, No rectal bleeding, No vomiting, No other, No nausea/vomiting/ diarrhea, No stool coloration changes Genitourinary: No no symptoms reported, No As described under HPI, No burning, No dysuria, No discharge, No frequency, No flank pain, No hematuria, No incontinence, No pain, No urgency, No other, No urine frequency changes, No urine coloration changes Musculoskeletal: No no symptoms reported, No As describe under HPI, No back pain, No gout, No joint pain, No joint swelling, No muscle pain, No muscle stiffness, No neck pain, No other Skin: No no symptoms reported, No As described under HPI, No change in color, No change in hair/nails, No dryness, No lesions, No lumps, No rash, No other, No skin related problems, No ulcerations, No rash on exposed areas, No ulcerations on exposed areas Psychiatric/Neurological: No As described under HPI, No anxiety, No depression , No emotional problems, No focal weakness, No headache, No no symptoms reported , No numbness, No other, No pre-existing deficit, No seizure, No syncope, No tingling, No tremors, No weakness Hematologic: No no symptoms reported, No As described under HPI, No anemia, No blood clots, No easy bleeding, No easy bruising, No swollen glands, No other, No bleeding abnormalities [facility]-Datag[facility]-Klew[facility] Hx Patient Social History Alcohol Use: Occasionally Uses Recreational Drug Use: Yes (YEARS AGO) Type Used: Cigarettes Recent Foreign Travel: No Recent Infectious Disease Expo: No Hospitalization with Isolation: Denies Physical Abuse Screen: No Sexual Abuse: No Immunizations Up To Date Tetanus Booster (TDap): Unknown Past Medical History PMH As described under Assessment. Allergies and Home Medications Allergies Coded Allergies: No Known Drug Allergies (Unverified , 01/16/10) Home Medications Apixaban 5 Mg Tablet 5 MG PO BID (Reported) Diltiazem HCl 120 Mg Cap.er.24h 120 MG PO DAILY (Reported) Famotidine 20 Mg Tablet 20 MG PO HS PRN PRN INDIGESTION (Reported) Hydrocodone/Acetaminophen 1 Each Tablet 0.5-1 TAB PO EVERY 8-12 HOURS PRN PRN PAIN (Reported) Sotalol HCl 120 Mg Tablet 120 MG PO BID (Reported) Physical Exam-Cardiology Physical Exam Vital Signs/I&O Vital Sign - Last 12Hours 05/29/16 05/29/16 11:10 11:37 Pulse 146 133 Resp 20 B/P 141/81 Pulse Ox 97 Capillary Refill : Constitutional: No appears stated age, No AAO x 3, No apparent distress, No PERRL, No well-developed, No well-nourished, No other HEENT: No PERRL, No normal ENT inspection, No TMs normal, No pharynx normal, No scleral icterus (R), No scleral icterus (L), No pale conjunctivae (R), No pale conjunctivae (L), No photophobia, No TM abnormal (R), No TM abnormal (L), No pharyngeal erythema, No tonsillar exudate, No other, No discharge, No EOMI, No hearing is well preserved, No hard of hearing, No oral hygience is good, No ulceration, No xanthelasmas are seen Neck: No non-tender, No full range of motion, No supple, No normal inspection, No carotid bruit, No limited range of motion, No lymphadenopathy (R), No lymphadenopathy (L), No tender lateral, No tender midline, No thyromegaly, No other, No carotid pulses are 2 + bilaterally, No with good upstrokes Respiratory: No accessory muscle use, No respiratory distress, No chest tender , No chest expansion is symmetric, No chest is bilaterally symmetric, No lungs clear to percussion, No lungs clear to auscultation, No crackles, No rhonchi, No rales, No stridor, No wheezing, No pleural rub, No other Cardiovascular: No regular rate-rhythm, irregularly irregularNo extra beats, No parasternal heave is noted, No JVD, No edema, No bradycardia, tachycardiaNo point of maximal impulse, No cardiac thrills are palpable, No S1 and S2, No gallop/S3, No gallop/S4, No diastolic murmur, No systolic murmur, No friction rub, No click, No other Gastrointestinal: No tender, No soft, No round, No distended, No pulsatile mass , No organomegaly, No guarding, No rebound, No tenderness, No hernia, No mass, No audible bowel sounds, No abnormal bowel sounds, No abdominal bruits, No spleenomegaly, No other Rectal: deferred Extremities: No normal range of motion, No non-tender, No normal inspection, No pedal edema, No calf tenderness, No normal capillary refill, No pelvis stable , No calf tenderness, No inflammation, No pedal edema, No slow capillary refill , No swelling, No other, No abrasion, No clubbing, No cyanosis, No ecchymosis, No laceration, No no lower extremity edema bilateral, No significant edema, No tenderness, No wound Neurologic/Psychiatric: No hog room supervisor II-XII nml as tested, No no motor/sensory deficits, No alert, No normal mood/affect, No oriented x 3, No abnormal cerebellar tests, No abnormal hog room supervisor II-XII, No abnormal gait, No aphasia, No EOM palsy, No facial droop, No motor weakness, No sensory deficit, No depressed affect, No disoriented x 3, No other, No grossly intact, No power is 5/5 both on sides ECG Impression ECG Initial ECG Impression: Atrial Fibrillation w/RVR A/P-Cardiology Assessment/Admission Diagnosis Atrial fibrillation with rapid ventricular rate Plan Patient seen on the request of Dr. Eastman as an EP consult. Atrial defibrillation with rapid ventricular rate; increase the dose of Cardizem and flecainide. Patient has been on uninterrupted Eliquis for the last one month. Direct electrical cardioversion will be planned for tomorrow. Case discussed with Dr. Eastman. Thank you for your consultation. Please call me if you have any questions. Lanny Sagastume MD, [facility] Cardiac Electrophysiology Clinical Quality Measures DVT/VTE Risk/Contraindication: Risk Factor Score Per Nursin RFS Level Per Nursing on Admit: 3=High Roger SAGASTUME MD May 29, 2016 13:16 Roger SAGASTUME MD May 29, 2016 13:16
[2016-05-29] MEDS ORDERED: FLEC50TA PO (13:20)
[2016-05-29 14:46] LABS: MEAN PLATELET VOLUME 11.1 FL (7.4-10.4); RED BLOOD COUNT 6.12 10^6/uL (4.35-5.85); RED CELL DISTRIBUTION WIDTH 15.5 % (10.0-14.5); WHITE BLOOD COUNT 5.7 10^3/uL (4.3-11.0)
[2016-05-29 15:06] LABS: ALANINE AMINOTRANSFERASE 204 U/L (0-55); ALBUMIN 3.5 G/DL (3.2-4.5); ANION GAP 10 MMOL/L (5-14); ASPARTATE AMINO TRANSFERASE 173 U/L (5-34); BILIRUBIN,TOTAL 0.6 MG/DL (0.1-1.0); BLOOD UREA NITROGEN 11 MG/DL (7-18); BUN/CREATININE RATIO 14; CALCIUM 8.8 MG/DL (8.5-10.1); CARBON DIOXIDE 23 MMOL/L (21-32); CHLORIDE 103 MMOL/L (98-107); GFR ESTIMATED > 60; GLUCOSE 170 MG/DL (70-105); POTASSIUM 3.9 MMOL/L (3.6-5.0); SODIUM 136 MMOL/L (135-145); TOTAL PROTEIN 6.7 G/DL (6.4-8.2)
[2016-05-29] MEDS ORDERED: FAMOTIDINE 20 MG (PEPCID) TABLET PO PRN (15:15)
[2016-05-29] MEDS: APIXABAN 5 MG (ELIQUIS) TABLET PO SCH (20:13)
[2016-05-30] VITALS (18 sets, daily range): BP systolic 103–155; BP diastolic 47–90
[2016-05-30] MEDS: DILTIAZEM DRIP 100 MG in SODIUM CHLORIDE (ADD-VANTAGE) 100 ML IV SCH ×2 (00:25→08:06)
[2016-05-30] MEDS ORDERED: ACETAMINOPHEN 325 MG TABLET/CAPLET (TYLENOL) ONE (00:34)
[2016-05-30] MEDS ORDERED: ACETAMINOPHEN 325 MG TABLET/CAPLET (TYLENOL) PO ONE (02:00)
[2016-05-30 04:31] LABS: MEAN PLATELET VOLUME 10.8 FL (7.4-10.4); RED BLOOD COUNT 6.12 10^6/uL (4.35-5.85); RED CELL DISTRIBUTION WIDTH 15.7 % (10.0-14.5); WHITE BLOOD COUNT 6.8 10^3/uL (4.3-11.0)
[2016-05-30 04:39] LABS: INR 1.1 (0.8-1.4); PROTHROMBIN TIME PATIENT 14.2 SEC (12.2-14.7)
[2016-05-30 04:55] LABS: ALANINE AMINOTRANSFERASE 199 U/L (0-55); ALBUMIN 3.4 G/DL (3.2-4.5); ANION GAP 9 MMOL/L (5-14); ASPARTATE AMINO TRANSFERASE 170 U/L (5-34); BILIRUBIN,TOTAL 0.7 MG/DL (0.1-1.0); BLOOD UREA NITROGEN 12 MG/DL (7-18); BUN/CREATININE RATIO 14; CALCIUM 8.9 MG/DL (8.5-10.1); CARBON DIOXIDE 24 MMOL/L (21-32); CHLORIDE 104 MMOL/L (98-107); CREATININE SERUM 0.83 MG/DL (0.60-1.30); GFR ESTIMATED > 60; GLUCOSE 97 MG/DL (70-105); MAGNESIUM 1.9 MG/DL (1.8-2.4); POTASSIUM 4.4 MMOL/L (3.6-5.0); SODIUM 137 MMOL/L (135-145); TOTAL PROTEIN 6.6 G/DL (6.4-8.2)
[2016-05-30] MEDS ORDERED: KCL 20 MEQ TAB (K-DUR) PO SCH (06:00)
[2016-05-30] MEDS ORDERED: POTASSIUM CL 10MEQ/50ML IVPB 50 ML IV SCH (06:00)
[2016-05-30] MEDS ORDERED: MAGNESIUM 1 GM/100 ML IVPB 100 ML IV SCH (06:00)
[2016-05-30] MEDS: APIXABAN 5 MG (ELIQUIS) TABLET PO SCH (08:07)
[2016-05-30] MEDS: FLECAINIDE 50 MG TAB PO SCH (08:07)
--- NOTE | 2016-05-30 08:20 | Diagnostic Imaging Report ---
INDICATION: Atrial fibrillation. COMPARISON STUDY: Chest from November 16. FINDINGS: Portable view of the chest demonstrates lungs to be clear. The heart size at the upper limits of normal and unchanged. Vascularity is normal. There are no pleural effusions. IMPRESSION: There are no acute findings. Dictated by: Dictated on workstation # [id number]
--- NOTE | 2016-05-30 08:41 | Cardiology History & Physical ---
HPI-Cardiology Cardiology Consultation Date of Consultation 05/30/16 Date of Admission Indication: shortness of breath HPI 60-year-old gentleman with paroxysmal atrial fibrillation, failed sotalol, underwent cardioversion last month, went back to atrial fibrillation, I switched him to flecainide, still in atrial fibrillation, seen in my office yesterday and he was having increasing shortness of breath. Admit having palpitation, fatigue and loss of energy. No chest pain. No syncope. PMH-Cardiology Immunizations Up To Date Tetanus Booster (DTap): Unknown Seasonal Allergies Seasonal Allergies: Yes Surgeries HX Surgeries: Yes Respiratory Hx Respiratory Disorders: Yes Cardiovascular Hx Cardiovascular Disorders: Yes Cardiac Disorders: Atrial Fibrillation, Hypertension Neurological Hx Neurological Disorders: No Reproductive System Hx Reproductive Disorders: No Sexually Transmitted Disease: No HIV/AIDS: No Genitourinary Hx Genitourinary Disorders: No Gastrointestinal Hx Gastrointestinal Disorders: Yes Gastrointestinal Disorders: Gastroesophageal Reflux, Liver Disease/Jaundice Musculoskeletal Hx Musculoskeletal Disorders: Yes (RIGHT SHOULDER) Endocrine Hx Endocrine Disorders: No HEENT HX ENT Disorders: No Loss of Vision: Denies Hearing Impairment: Denies Cancer Hx Cancer: No Psychosocial Hx Psychiatric Problems: No Integumentary HX Skin/Integumentary Disorder: No Blood Transfusions Hx Blood Disorders: No Other PMHx Other PMHx: Past medical history as discussed below Social History Patient Social History Marrital Status: Employed/Student: employed Alcohol Use: Occasionally Uses Recreational Drug Use: Yes (YEARS AGO) Smoking: Current every day smoker Recent Foreign Travel: No Contact w/other who traveled: No Recent Infectious Disease Expo: No Family Hx Significant Family History: No Pertinent Family Hx Other noncontributory to his current medication ROS-Cardiology Review of Systems General: No Chills, No Night Sweats, Fatigue MalaiseNo Appetite HEENT: No Head Aches, No Visual Changes, No Eye Pain, No Ear Pain, No Dysphasia , No Sinus Congestion, No Post Nasal Drip, No Sore Throat Pulmonary: DyspneaNo Cough, No Pleuritic Chest Pain Cardiovascular: : PalpitationsNo: Chest Pain, Edema, Lt Headedness, Orthopnea, Paroxysmal Noc. Dyspnea Gastrointestinal: No: Abdominal Pain, Constipation, Diarrhea, Hematochezia, Melena, Nausea, Vomiting Genitourinary: No Dysuria, No Frequency, No Incontinence, No Hematuria, No Retention Musculoskeletal: No: arm pain, back pain, foot pain, hand pain, leg pain, neck pain, shoulder pain Neurological: No: Change in speech, Confusion, Incoordination, Numbness, Seizures, Weakness Home Medications & Allergies Allergies: Coded Allergies: No Known Drug Allergies (Unverified , 01/16/10) Home Medication List Reviewed: Yes Exam-Cardiology Vital Signs Vital Signs Date Time Temp Pulse Resp B/P Pulse Ox O2 Delivery O2 Flow Rate FiO2 05/30/16 08:06 97.7 67 18 132/85 96 05/30/16 08:04 Room Air 05/30/16 06:00 2.00 Exam General Appearance: Alert, Oriented X3, Cooperative, No Acute Distress HEENT: Atraumatic, PERRLA Respiratory: Clear to Auscultation, Normal Air Movement Cardiovascular: Normal S1, Normal S2, No Murmurs, Other (irregular rhythm) Abdominal: Normal Bowel Sounds, Soft, No Tenderness, No Hepatosplenomegaly, No Masses Extremities: No Clubbing, No Cyanosis, No Edema, Normal Pulses, No Tenderness/ Swelling Skin: No Rashes, No Breakdown, No Significant Lesion Neuro: Normal Gait, Normal Speech, Strength at 5/5 X4 Ext, Normal Tone, Sensation Intact Psych/Mental Status: Mental Status NL, Mood NL Results Labs Labs Laboratory Tests 05/29/16 14:39: Alanine Aminotransferase (ALT/SGPT) 204H, Albumin 3.5, Alkaline Phosphatase 54, Anion Gap 10, Aspartate Amino Transf (AST/SGOT) 173H, BUN/Creatinine Ratio 14, Blood Urea Nitrogen 11, Calcium Level 8.8, Carbon Dioxide Level 23, Chloride Level 103, Creatinine 0.80, Estimat Glomerular Filtration Rate > 60, Glucose Level 170H, Hematocrit 45, Hemoglobin 14.8, Mean Corpuscular Hemoglobin 24L, Mean Corpuscular Hemoglobin Concent 33, Mean Corpuscular Volume 74L, Mean Platelet Volume 11.1H, Platelet Count 171, Potassium Level 3.9, Red Blood Count 6.12H, Red Cell Distribution Width 15.5H, Sodium Level 136, Total Bilirubin 0.6 , Total Protein 6.7, White Blood Count 5.7 05/30/16 04:00: Alanine Aminotransferase (ALT/SGPT) 199H, Albumin 3.4, Alkaline Phosphatase 51, Anion Gap 9, Aspartate Amino Transf (AST/SGOT) 170H, BUN/Creatinine Ratio 14, Blood Urea Nitrogen 12, Calcium Level 8.9, Carbon Dioxide Level 24, Chloride Level 104, Creatinine 0.83, Estimat Glomerular Filtration Rate > 60, Glucose Level 97, Hematocrit 45, Hemoglobin 14.5, Mean Corpuscular Hemoglobin 24L, Mean Corpuscular Hemoglobin Concent 32, Mean Corpuscular Volume 74L, Mean Platelet Volume 10.8H, Platelet Count 169, Potassium Level 4.4, Red Blood Count 6.12H, Red Cell Distribution Width 15.7H, Sodium Level 137, Total Bilirubin 0.7, Total Protein 6.6, White Blood Count 6.8, INR Comment 1.1, Magnesium Level 1.9, Prothrombin Time 14.2 A/P-Cardiology Admission Diagnosis paroxysmal atrial fibrillation Shortness of breath Hypertension Palpitation Assessment/Plan Paroxysmal atrial fibrillation, status post electrical cardioversion done in October 2015, patient was hospitalized February 20, 2016, started on sotalol. Underwent JAMES with successful cardioversion on 2015. He had been on sotalol 120 mg twice daily, back in atrial fibrillation upon evaluation last week. Sotalol was discontinued and patient was started on flecainide 50 mg twice daily. Returns today with continued complaints of dyspnea and palpitation. EKG reveals A. fib with RVR with a rate of 150. admitted to ICU and started on Cardizem drip, planning for electrical cardioversion today and possible discharge later on today. Shortness of breath secondary to atrial fibrillation with rapid ventricular response, feeling better after controlling his rate. Palpitation, secondary to atrial fibrillation. Feeling better today. [id number] score is 1, yearly risk of stroke without oral anticoagulation is 1.3 percent, maintained on Eliquis. Cardiac catheterization was done on April 12, [address] Sagastume and reported normal coronaries. Hypertension, controlled. Continue to monitor blood pressure/heart rate Severe sleep apnea, seen by Dr. Carreno, using C Pap machine with oxygen COPD, obstructive sleep apnea, seen and managed by Dr. Carreno BPH, managed by primary care physician Hepatitis C, diagnosed with elevated liver enzymes, followed by primary care physician and Dr. Davis. Clinical Quality Measures DVT/VTE Risk/Contraindication: Risk Factor Score Per Nursin RFS Level Per Nursing on Admit: 3=High GAYLE TENORIO MD May 30, 2016 08:41
[2016-05-30] MEDS ORDERED: MIDAZOLAM 5 MG/5 ML (VERSED) VIAL ONE (09:34)
[2016-05-30] MEDS ORDERED: NS IV 500 ML 500 ML ONE (09:34)
[2016-05-30] MEDS ORDERED: proPOfol 200 MG/20 ML (DIPRIVAN) VIAL IV ONE (09:35)
--- NOTE | 2016-05-30 10:54 | Cardiac Procedure Note-CS/ASA ---
Pre-Procedure Note Pre-Op Procedure Note H&P Reviewed The H&P was reviewed, patient examined and no changes noted. Date H&P Reviewed: May 30, 2016 Time H&P Reviewed: 10:54 Conscious Sedation Pre-Proced Time Reviewed: 10:54 ASA Class: 3 Airway Mallampati Classification: (moapa appropriate class) I. II. III, IV Lungs Heart ASA score ASA 1: a normal healthy patient ASA 2: a patient with a mild systemic disease (mid diabetes, controlled hypertension, obesity x ASA 3: a patient with a severe systemic disease that limits activity (angina , COPD, prior Myocardial infarction) ASA 4: a patient with an incapacitating disease that is a constant threat to life (CHF, renal failure) ASA 5: a moribund patient not expected to survive 24 hrs. (ruptured aneurysm) ASA 6: a declared brain patient whose organs are being harvested. For emergent operations, add the letter E after the classification Grade 3 Sedation Plan: Analgesia, Amnesia, Plan communicated to team members, Discussed options with patient/fam, Discussed risks with patient/fam Note The patient is an appropriate candidate to undergo the planned procedure, sedation, and anesthesia. The patient immediately re-assessed prior to indication. GAYLE TENORIO MD May 30, 2016 10:54
--- NOTE | 2016-05-30 12:52 | Progress Note-Standard ---
Standard Progress Note Progress Notes/Assess & Plan Progress/Assessment & Plan sedation for cardioverson. start time 1235 end time 1237 2mg versed 60 mg propofol iv tolerated procedure well KVNG SALAZAR CRNA May 30, 2016 12:52
[2016-05-30] MEDS ORDERED: DILT120C53 PO (17:11)
[2016-05-30] MEDS ORDERED: FLEC100T PO (17:11)
--- NOTE | 2016-05-30 17:14 | Clinic Account Progress/Dx ---
Clinic Account Progress/Dx DIAGNOSIS: Diagnosis atrial fibrillation tachycardia shortness of breath hypertension GAYLE TENORIO MD May 30, 2016 17:14
--- NOTE | 2016-05-30 22:02 | Cardiology Progress Note ---
Cardiology SOAP Progress Note Subjective: ventricular rate is better controlled; no symptoms Objective: I&O/Vital Signs Vital Sign - Last 12Hours 05/30/16 05/30/16 05/30/16 05/30/16 10:45 11:45 12:00 12:35 Temp 97.5 Pulse 77 B/P 155/85 124/84 Pulse Ox 96 96 O2 Delivery Room Air Room Air 05/30/16 05/30/16 05/30/16 05/30/16 12:42 13:55 14:55 15:30 Pulse 67 61 81 70 Resp 18 25 17 B/P 131/79 152/90 145/82 Pulse Ox 96 99 98 O2 Delivery Room Air Room Air Room Air 05/30/16 05/30/16 05/30/16 05/30/16 16:30 16:30 17:30 18:15 Temp 97.9 Pulse 78 78 78 Resp 34 16 16 B/P 151/84 151/86 151/86 Pulse Ox 97 94 94 O2 Delivery Room Air Room Air Intake and Output 05/30/16 00:00 Intake Total 970 ml Output Total 1000 ml Balance -30 ml Weight (Pounds): 246 Weight (Ounces): 1.0 Weight (Calculated Kilograms): 111.107005 Constitutional: No appears stated age, No AAO x 3, No apparent distress, No PERRL, No well-developed, No well-nourished, No other Respiratory: No accessory muscle use, No respiratory distress, No chest tender , No chest expansion is symmetric, No chest is bilaterally symmetric, No lungs clear to percussion, No lungs clear to auscultation, No crackles, No rhonchi, No rales, No stridor, No wheezing, No pleural rub, No other Cardiovascular: No regular rate-rhythm, irregularly irregularNo extra beats, No parasternal heave is noted, No JVD, No edema, No bradycardia, No tachycardia , No point of maximal impulse, No cardiac thrills are palpable, No S1 and S2, No gallop/S3, No gallop/S4, No diastolic murmur, No systolic murmur, No friction rub, No click, No other Gastrointestional: No tender, No soft, No round, No distended, No pulsatile mass, No organomegaly, No guarding, No rebound, No tenderness, No hernia, No mass, No audible bowel sounds, No abnormal bowel sounds, No abdominal bruits, No spleenomegaly, No other Extremities: No normal range of motion, No non-tender, No normal inspection, No pedal edema, No calf tenderness, No normal capillary refill, No pelvis stable , No calf tenderness, No inflammation, No pedal edema, No slow capillary refill , No swelling, No other, No abrasion, No clubbing, No cyanosis, No ecchymosis, No laceration, No no lower extremity edema bilateral, No significant edema, No tenderness, No wound Neurologic/Psychiatric: No conflict resolution professional II-XII nml as tested, No no motor/sensory deficits, No alert, No normal mood/affect, No oriented x 3, No abnormal cerebellar tests, No abnormal conflict resolution professional II-XII, No abnormal gait, No aphasia, No EOM palsy, No facial droop, No motor weakness, No sensory deficit, No depressed affect, No disoriented x 3, No other, No grossly intact, No power is 5/5 both on sides Results/Procedures: Labs Laboratory Tests 05/30/16 04:00: Alanine Aminotransferase (ALT/SGPT) 199H, Albumin 3.4, Alkaline Phosphatase 51, Anion Gap 9, Aspartate Amino Transf (AST/SGOT) 170H, BUN/Creatinine Ratio 14, Blood Urea Nitrogen 12, Calcium Level 8.9, Carbon Dioxide Level 24, Chloride Level 104, Creatinine 0.83, Estimat Glomerular Filtration Rate > 60, Glucose Level 97, Hematocrit 45, Hemoglobin 14.5, INR Comment 1.1, Magnesium Level 1.9, Mean Corpuscular Hemoglobin 24L, Mean Corpuscular Hemoglobin Concent 32, Mean Corpuscular Volume 74L, Mean Platelet Volume 10.8H, Platelet Count 169, Potassium Level 4.4, Prothrombin Time 14.2, Red Blood Count 6.12H, Red Cell Distribution Width 15.7H, Sodium Level 137, Total Bilirubin 0.7, Total Protein 6.6, White Blood Count 6.8 A/P: Assessment/Dx: Atrial fibrillation with rapid ventricular rate Plan: Patient seen on the request of Dr. Eastman as an EP consult. atrial fibrillation with better ventricular control on Cardizem infusion. Continues flecainide. Eliquis for stroke prevention. Cardioversion with Dr. Eastman today since patient is still in atrial fibrillation. After successful cardioversion, I will see the patient as an outpatient. Thank you for your consultation. Please call me if you have any questions. Lanny Sagastume MD, FACP, FACC, FSCAI, FHRS, CCDS Interventional Cardiology Cardiac Electrophysiology Vascular Medicine and Endovascular Interventions Roger SAGASTUME MD May 30, 2016 10:01 pm
--- NOTE | 2016-05-31 09:56 | PROCEDURE REPORT ---
PROCEDURE PHYSICIAN: GAYLE TENORIO [facility] REPORT DATE OF PROCEDURE: 05/30/2016 BRIEF HISTORY: Mr. Rios was admitted with atrial fibrillation and rapid ventricular response, started on Cardizem drip. He has been on flecainide. I increased the dose to 100 mg and proceeded with an electrical cardioversion. Did not do JAMES due to the fact that the patient had JAMES earlier in May and has been on continuous oral anticoagulation, did not miss any dose. PROCEDURE NOTE: After explaining the procedure to the patient, all pros and cons were explained. All questions were answered. The patient signed a consent, then he was sedated with assist of anesthesia. Synchronized DC cardioversion was delivered. At 12 Joules and failed to convert him to sinus rhythm. Repeated at 150 joules which failed also to convert him. Then the 3rd attempt was done with 200 joules and it was successful in converting him to sinus rhythm. CONCLUSION: 1. Successful electrical cardioversion after 3 attempts up to 200 joules with synchronized DC cardioversion in terminating atrial fibrillation. The patient maintained sinus rhythm. 2. No complication noted Job ID: [id number] Dictated Date: 05/30/2016 12:50:13 Produce Department Supervisor Date: 05/31/2016 09:52:58 / bhavana
--- OUTSIDE RECORDS SUMMARY | 2016-06-01 15:48 | XMS REPORT | Continuity of Care Document ---
Author Author [facility] Organization [facility] Address Unknown Phone Unavailable Care Team Providers Care Advertisement Compositor Name Role Phone JAX RUBIN MD PCP Insurance Providers Payer Name Policy Number Subscriber Name Relationship Self Pay Pending Jo Apprv [id number] Faby Rios 18 Self / Same As Patient Advance Directives Directive Response Recorded Date/Time Advance Directives No 04/12/16 11:18am Health Care Power of Senior Business Intelligence Analyst No 04/12/16 11:18am Organ Donor No 04/12/16 [...] - 99.5) 04/12/2016 6:45pm Temperature (Calculated Celsius) 36.93081 degrees C (36.4 - 37.5) 04/12/2016 3:45pm [...] 10.00 inches 04/12/2016 11:18am Height (Calculated Centimeters) 177.359058 cm 04/12/2016 11:18am Weight (Pounds) 238 pounds 04/12/2016 11:18am Weight (Ounces) 0.0 oz 04/12/2016 11:18am Weight (Calculated Grams) 533838.99 gm 04/12/2016 11:18am Weight (Calculated Kilograms) 107.984484 kilograms 04/12/2016 11:18am Calculated BMI 34.2 04/12/2016 11:18am Capillary Refill Capillary Refill Less Than 3 Seconds 04/12/2016 6:40pm Results Pending Laboratory Results Test Name Collection Date/Time Procedures No known history of procedures. Encounters Encounter Location Arrival/Admit Date Discharge/Depart Date Attending Provider Departed [facility] 04/12/16 10:33am 04/12/16 6:45pm Roger JOSUE MD Registered Clinic [facility] 04/05/16 10:35am Roger JOSUE MD
--- OUTSIDE RECORDS SUMMARY | 2016-06-01 15:48 | XMS REPORT | Continuity of Care Document ---
Author Author [facility] Organization [facility] Address Unknown Phone Unavailable Care Team Providers Care Exercise Equipment Repair Technician Name Role Phone JAX RUBIN MD PCP Insurance Providers Payer Name Policy Number Subscriber Name Relationship Self Pay Pending Jo Apprv [id number] Faby Rios 18 Self / Same As Patient Advance Directives Directive Response Recorded Date/Time Advance Directives No 04/12/16 11:18am Health Care Power of Construction Electrician No 04/12/16 11:18am Organ Donor No 04/12/16 [...] - 99.5) 04/12/2016 6:45pm Temperature (Calculated Celsius) 36.65393 degrees C (36.4 - 37.5) 04/12/2016 3:45pm [...] 10.00 inches 04/12/2016 11:18am Height (Calculated Centimeters) 177.335418 cm 04/12/2016 11:18am Weight (Pounds) 238 pounds 04/12/2016 11:18am Weight (Ounces) 0.0 oz 04/12/2016 11:18am Weight (Calculated Grams) 939102.99 gm 04/12/2016 11:18am Weight (Calculated Kilograms) 107.445018 kilograms 04/12/2016 11:18am Calculated BMI 34.2 04/12/2016 11:18am Capillary Refill Capillary Refill Less Than 3 Seconds 04/12/2016 6:40pm Results Pending Laboratory Results Test Name Collection Date/Time Procedures No known history of procedures. Encounters Encounter Location Arrival/Admit Date Discharge/Depart Date Attending Provider Departed [facility] 04/12/16 10:33am 04/12/16 6:45pm Roger JOSUE MD Registered Clinic [facility] 04/05/16 10:35am Roger JOSUE MD
== END 2016-05-30 18:15 | disposition home or self-care (01) ==
LOC: ICU 10:30 → CATH 10:30 → UNDOADMOB 10:30 → ICU 10:30 → EDSTATUS 05-30 11:00 → UNDODISOB 05-30 18:15 → CATH 05-30 18:15
PROVIDERS: ATTEND Internal Medicine Cardiovascular Disease
DX: I48.0 Paroxysmal atrial fibrillation (principal); I10 Essential (primary) hypertension; J44.9 Chronic obstructive pulmonary disease, unspecified; N40.0 Benign prostatic hyperplasia without lower urinary tract symptoms; G47.33 Obstructive sleep apnea (adult) (pediatric); B19.20 Unspecified viral hepatitis C without hepatic coma; Z79.899 Other long term (current) drug therapy; R53.83 Other fatigue; R00.2 Palpitations
CPT/HCPCS: 36415; 71010; 80053; 83735; 85027; 85610; 92960; 93005

== ENCOUNTER → 2016-10-10 | Outpatient (CLI) | payer OTHER ==
[~2016-10-10] MED LIST changes: +FLEC100T PO; +FLEC50TA PO; -PATIENT MAY USE OWN MEDS, ALL MC SCH; +RT-ALBUTEROL SULF 2.5 MG/3 ML PRE-MIX VIAL IH ONE; +RT-ALBUTEROL SULF 2.5 MG/3 ML PRE-MIX VIAL ONE
== END ==
LOC: RT 11:26
PROVIDERS: ATTEND Neuromusculoskeletal Medicine, Sports Medicine
DX: Z02.71 Encounter for disability determination (principal)
CPT/HCPCS: 94060; 94640

== ENCOUNTER → 2016-12-26 | Outpatient (CLI) | payer OTHER ==
[~2016-12-26] MED LIST changes: -RT-ALBUTEROL SULF 2.5 MG/3 ML PRE-MIX VIAL IH ONE; -RT-ALBUTEROL SULF 2.5 MG/3 ML PRE-MIX VIAL ONE
--- NOTE | 2016-12-26 14:29 | Diagnostic Imaging Report ---
PA and lateral views of the chest. INDICATION: Shortness of breath. FINDINGS: Increased density along the anterior lower chest more prominent on the right side appears to relate to pericardial fat pad with no significant consolidation seen. The lungs are mildly hyperinflated. The heart size is normal. No effusion or pneumothorax. The mediastinum and stephy appear unremarkable. IMPRESSION: Hyperinflated clear lungs. Dictated by: Dictated on workstation # [id number]
== END ==
LOC: RAD 12:31
PROVIDERS: ATTEND Nurse Practitioner Family
DX: R06.00 Dyspnea, unspecified (principal); J44.9 Chronic obstructive pulmonary disease, unspecified
CPT/HCPCS: 71020

== ENCOUNTER → 2017-01-30 | Outpatient (CLI) | payer OTHER ==
[~2017-01-30] MED LIST changes: +RT-ALBUTEROL SULF 2.5 MG/3 ML PRE-MIX VIAL IH ONE
== END ==
LOC: RT 12:42
PROVIDERS: ATTEND Nurse Practitioner Family
DX: J44.9 Chronic obstructive pulmonary disease, unspecified (principal); R06.00 Dyspnea, unspecified; G47.34 Idiopathic sleep related nonobstructive alveolar hypoventilation
CPT/HCPCS: 94060; 94640; 94726; 94729

== ENCOUNTER → 2017-04-26 | Outpatient (CLI) | payer SELFPAY ==
[~2017-04-26] MED LIST changes: +METO50TA15 PO; -METO50TA2 PO; -RT-ALBUTEROL SULF 2.5 MG/3 ML PRE-MIX VIAL IH ONE
== END ==
LOC: CARD 09:27
PROVIDERS: ATTEND Internal Medicine Cardiovascular Disease
DX: J44.9 Chronic obstructive pulmonary disease, unspecified (principal); I48.0 Paroxysmal atrial fibrillation; I10 Essential (primary) hypertension; E78.1 Pure hyperglyceridemia; I34.0 Nonrheumatic mitral (valve) insufficiency; Z87.891 Personal history of nicotine dependence
CPT/HCPCS: 93306

== ENCOUNTER → 2017-08-14 | Outpatient (CLI) | payer MEDICAID, OTHER ==
[~2017-08-14] MED LIST changes: +CATHETER FLUSH 10 ML SYR IV PRN; +IOHEXOL 350 MG/ML 150 ML (OMNIPAQUE 350) VIAL IV ONE; +NS 250 ML (IVPB) BAG IV ONE
[2017-08-14 16:14] LABS: BUN/CREATININE RATIO 13; CREATININE SERUM 0.87 MG/DL (0.60-1.30); GFR ESTIMATED > 60
--- NOTE | 2017-08-14 16:35 | Diagnostic Imaging Report ---
EXAM: Bilateral lower extremity venous Doppler ultrasound. DATE: 08/14/2017. INDICATION: 61-year-old male, bilateral leg swelling. Shortness of breath. COMPARISON: None. FINDINGS: The left common femoral vein, left superficial femoral vein, and left popliteal vein all demonstrate blood flow with response to augmentation. The left posterior tibial and peroneal veins appear patent. The right common femoral vein, right superficial femoral vein and right popliteal vein are all patent with blood flow and response to augmentation. The right posterior tibial and peroneal veins appear patent. IMPRESSION: Negative for right or left lower extremity deep venous thrombosis. Dictated by: Dictated on workstation # [id number]
--- NOTE | 2017-08-14 17:06 | Diagnostic Imaging Report ---
PROCEDURE: CT angiography of the chest with contrast. TECHNIQUE: Multiple contiguous axial images were obtained through the chest after uneventful bolus administration of intravenous contrast. Reconstructed CTA MIP acquisitions were also performed. INDICATION: Hypoxia. Lower extremity swelling. Dyspnea. COMPARISON: Chest radiographs of 12/26/2016. CT chest without contrast of 11/20/2015. FINDINGS: Mild atherosclerotic calcifications including coronary and aortic. Normal caliber thoracic aorta without evidence of dissection. No pulmonary artery filling defects. Normal heart size. No pericardial effusion. No mediastinal, hilar or axillary lymphadenopathy. Advanced emphysematous changes in both lungs. No pleural effusion or pneumothorax. No focal consolidation. No endobronchial lesions. Cholelithiasis without secondary findings of cholecystitis. No acute osseous findings. IMPRESSION: 1. No pulmonary emboli. No thoracic aortic aneurysm or dissection. 2. Advanced emphysematous changes in both lungs. No focal consolidation. 3. Cholelithiasis without secondary findings of cholecystitis. Dictated by: Dictated on workstation # [id number]
== END ==
LOC: RAD 15:40
PROVIDERS: ATTEND Nurse Practitioner Family
DX: J43.9 Emphysema, unspecified (principal); K80.20 Calculus of gallbladder without cholecystitis without obstruction; M79.89 Other specified soft tissue disorders
CPT/HCPCS: 36415; 36600; 71275; 82565; 84520; 93970

== ENCOUNTER 2017-09-23 08:00 | Outpatient (RCR) | payer MEDICAID, OTHER ==
[~2017-09-23 08:00] MED LIST changes: -CATHETER FLUSH 10 ML SYR IV PRN; -IOHEXOL 350 MG/ML 150 ML (OMNIPAQUE 350) VIAL IV ONE; -LOSA100T28 PO; +LOSA100T8 PO; -NS 250 ML (IVPB) BAG IV ONE
[2017-10-01 09:55] VITALS: BP 135/60
[2017-10-01 10:58] VITALS: BP 140/60
[2017-10-03 10:00] VITALS: BP 150/50
[2017-10-03 10:55] VITALS: BP 125/65
[2017-10-08 10:00] VITALS: BP 125/50
[2017-10-08 11:00] VITALS: BP 130/60
[2017-10-10 09:55] VITALS: BP 130/60
[2017-10-10 10:50] VITALS: BP 132/68
[2017-10-10 11:19] VITALS: BP 122/58
[2017-10-15 09:57] VITALS: BP 140/60
[2017-10-15 11:00] VITALS: BP 140/60
[2017-10-17 10:00] VITALS: BP 130/60
[2017-10-17 11:07] VITALS: BP 158/60
[2017-10-22 10:03] VITALS: BP 132/60
[2017-10-22 11:08] VITALS: BP 120/70
[2017-10-24 10:00] VITALS: BP 140/60
[2017-10-24 11:10] VITALS: BP 140/60
[2017-10-29 09:55] VITALS: BP 160/60
[2017-10-29 10:58] VITALS: BP 138/60
[2017-10-31 10:00] VITALS: BP 120/60
[2017-10-31 11:10] VITALS: BP 137/60
[2017-11-05 09:55] VITALS: BP 140/40
[2017-11-05 10:55] VITALS: BP 121/62
[2017-11-07 10:00] VITALS: BP 122/60
[2017-11-07 11:10] VITALS: BP 132/63
[2017-11-12 10:00] VITALS: BP 135/58
[2017-11-12 11:02] VITALS: BP 138/70
[2017-11-14 10:00] VITALS: BP 130/60
[2017-11-14 11:00] VITALS: BP 136/60
[2017-11-19 10:00] VITALS: BP 150/58
[2017-11-19 11:10] VITALS: BP 140/60
== END 2017-12-22 | disposition home or self-care (01) ==
LOC: PULM 08:00
PROVIDERS: ATTEND Internal Medicine Cardiovascular Disease
DX: J44.9 Chronic obstructive pulmonary disease, unspecified (principal); R06.02 Shortness of breath

== ENCOUNTER → 2018-07-17 | Outpatient (CLI) | payer MEDICARE, MEDICAID ==
[~2018-07-17] MED LIST changes: +LOSA100T57 PO; -LOSA100T8 PO
== END ==
LOC: CARD 11:04
PROVIDERS: ATTEND Internal Medicine Cardiovascular Disease
DX: I48.2 Chronic atrial fibrillation (principal); I10 Essential (primary) hypertension; E78.1 Pure hyperglyceridemia; R00.0 Tachycardia, unspecified; I34.0 Nonrheumatic mitral (valve) insufficiency
CPT/HCPCS: 93306

== ENCOUNTER 2018-08-14 08:43 | Day surgery (SDC) | payer MEDICARE, MEDICAID ==
[~2018-08-14] VITALS: Ht 177.8 cm; Wt 125.2 kg
[2018-08-14] MEDS ORDERED: NS IV 1000 ML 1,000 ML ONE (09:44)
[2018-08-14] MEDS ORDERED: NS IV 1000 ML 1,000 ML IV ONE (09:51)
[2018-08-14 10:09] VITALS: BP 133/91
[2018-08-14] MEDS ORDERED: proPOfol 200 MG/20 ML (DIPRIVAN) VIAL IV ONE (10:12)
[2018-08-14] MEDS ORDERED: fentaNYL INJECTION 100 MCG/2 ML AMP ONE (10:13)
[2018-08-14] MEDS ORDERED: MIDAZOLAM 2 MG/2 ML (VERSED) VIAL ONE (10:13)
[2018-08-14 10:36] VITALS: BP 118/78
--- NOTE | 2018-08-14 10:47 | Anesthesia-Procedure Note ---
Procedures/Interventions Procedure Start/Stop/Diagnosis Date of Procedure: August 14, 2018 Start Time: 10:31 Referring Physician: Tanika Preprocedural Diagnosis: Atrial Fib Brief History Called to [facility] for scheduled cardioversion. Brief hx and NPO status verified from chart and RN. ASA3. Monitors applied. O2 per NC. Pt received a total of 150mg of propofol in increments. VSS. Procedure completed without incident. Report to RN, pt spont breathing opening eyes. Stop Time: 10:40 Postprocedural Diagnosis: Atrial Fib FREDI BRITTON CRNA August 14, 2018 10:47
--- OUTSIDE RECORDS SUMMARY | 2018-08-14 10:50 | XMS REPORT | Encounter Summary ---
Author Author [facility] Organization [facility] Address Unknown Phone Unavailable Care Team Providers Care Necktie Centralizing Machine Operator Name Role Phone Chirag Balderas MD PCP Encounter Details Care Team Description Date Type Department Kavita Gandhi PHARMD 05/20/[address] [address] Social History Date Tobacco Use Types Packs/Day Years Used Quit: 04/01/2006 Former Smoker Cigarettes 2.5 37 Smokeless Tobacco: Never Used Alcohol Use Drinks/Week oz/Week Comments Yes rarely; 6 pack per year approx Sex Assigned at Date Recorded Not on file Industry Job Start Date Occupation Not on file Not on file Not on file Travel End Travel History Travel Start No recent travel history available. documented as of this encounter Progress Notes * Kavita Gandhi PHARMD - 05/20/2018 2:58 PM SWAGE TOOLSETTER Ronen Rios JrMyron completed hepatitis C treatment on 01/12/18. The patient has received the entire supply of medication and no longer requires additional refills. Additional testing is needed to proceed with evaluation of sustained viral response (SVR). The patients clinic nurse was notified that the patient needs a hepatitis C viral load twelve weeks after completion of hepatitis C treatment to establish SVR. The patient has not completed the hepatitis C viral load lab to evaluate SVR. Thus, the patient will be removed from the specialty patient management program. The patient may be re-enrolled at any time should they complete necessary labs or re-establish care with the clinic. The patients clinic nurse is aware to contact the hepatology pharmacist at [phone] or [email or web address] with questions and/or updates. Kavita Gandhi PHARMD, PharmD [phone] E TOOLSETTER documented in this encounter Plan of Treatment Not on filedocumented as of this encounter Visit Diagnoses Not on filedocumented in this encounter
--- OUTSIDE RECORDS SUMMARY | 2018-08-14 10:50 | XMS REPORT | Encounter Summary ---
Author Author [facility] Organization [facility] Address Unknown Phone Unavailable Care Team Providers Care Web Engineer Name Role Phone Chirag Balderas MD PCP Reason for Visit * Reason Comments Lab Request Encounter Details Care Team Description Date Type Department Osorio Russo MD [address] [facility] Lvl [address] [place] [id number] Lab Request 05/21/2018 Telephone [facility] [address] [place] [address] Social History Date Tobacco Use Types Packs/Day [...] history available. documented as of this encounter Miscellaneous Notes * Telephone Encounter - Veda Karimi RN - 05/21/2018 3:23 PM PAYROLL BENEFITS ADMINISTRATOR Received notification from Kavita with hepatology that patient did not complete his lab follow up for hep C treatment. Called and spoke with patient. States he had lab completed in April 2018 at [facility]. Called [facility] at [phone] and spoke with Lito. Labs were completed the end of April. He will fax them over. OLL BENEFITS ADMINISTRATOR documented in this encounter Plan of Treatment Not on filedocumented as of this encounter Visit Diagnoses Not on filedocumented in this encounter
--- OUTSIDE RECORDS SUMMARY | 2018-08-14 10:50 | XMS REPORT | Clinical Summary ---
Author Author [facility] Address Unknown Phone Unavailable Care Team Providers Care Steel Layout Worker Name Role Phone Chirag Balderas MD PCP Source Comments Some departments are not documenting in the electronic medical record. If you do not see the information that you expected, contact Release of Information in the Health Information Management department at [phone] for further assistance in locating additional records.[facility] Allergies Comments Active Allergy Reactions Severity Noted Date Hay Fever And Allergy COUGH Low 10/04/2016 Relief Medications End Date Status Medication Sig Dispensed Refills Start Date Active HYDROcodone/acetaminophen Take 1 Tab by 0 (+) (NORCO) 10/325 mg mouth every 4 tablet hours as needed for Pain Active famotidine (PEPCID) 20 mg Take 20 mg by 0 tablet mouth nightly as needed. Active albuterol (PROAIR HFA) 90 Inhale 2 0 mcg/actuation inhaler puffs by mouth into the lungs every 6 hours as needed for Wheezing or Shortness of Breath. Shake well before use. Active cetirizine (ZYRTEC) 10 mg Take 10 mg by 0 tablet mouth at bedtime daily. Active montelukast (SINGULAIR) Take 10 mg by 0 10 mg tablet mouth at bedtime daily. Active fluticasone-vilanterol(+) Inhale 1 puff 0 (BREO ELLIPTA) 100-25 mcg by mouth into inhalation disk the lungs daily. Active diltiazem (CARDIZEM) 120 TAKE TWO 270 tablet 3 //201 mg tab TABLETS BY 8 MOUTH EVERY MORNING TAKE ONE TABLET BY MOUTH EVERY EVENING Active losartan (COZAAR) 50 mg TAKE ONE 60 tablet 0 06/23/201 tablet TABLET BY 9 MOUTH TWICE A DAY Active Problems Problem Noted Date Hep C w/o coma, chronic 11/29/2017 Atrial fibrillation 11/02/2016 Dyspnea on exertion 10/04/2016 Hypertension 10/04/2016 Hypertriglyceridemia 10/04/2016 COPD (chronic obstructive pulmonary disease) 10/04/2016 SHANELL on CPAP 10/04/2016 Paroxysmal atrial fibrillation 08/15/2016 Overview: On eliquis Encounters Care Team Description Date Type Specialty Torin Hsu MD Medication Refill 06/23/2018 Refill Cardiology Veda Karimi RN Hep C w/o coma, chronic (HCC); Chronic obstructive pulmonary disease, unspecified COPD type (HCC) 05/21/2018 Orders Only Infectious Diseases Osorio Russo MD Lab Request 05/21/2018 Telephone Infectious Diseases Kavita Gandhi, CLAUDIAD 05/20/2018 Documentation Hepatology from Last 3 Months Immunizations Name Dates Previously Given Next Due Flu Vaccine=>64 YO 01/31/2018 High-Dose (PF) HEP A/HEP B Combined 11/29/2017 Vaccine Pneumococcal 01/31/2018 Vaccine(13-[facility]/immunocompromised adult) Tdap Vaccine 01/31/2018 Family History Medical History Relation Name Comments Cancer Father Lung primary? Unknown to Patient Maternal Aunt Unknown to Patient Maternal Grandfather Unknown to Patient Maternal Grandmother Unknown to Patient Maternal Uncle Alzheimer's Mother Cancer Paternal Grandfather Cancer-Colon Paternal Grandmother Heart Failure Paternal Uncle Relation Name Status Comments Brother Alive Brother Alive Father (Age mid 70s) Maternal Aunt Maternal Grandfather Maternal Grandmother Maternal Uncle Mother (Age late 70s) Paternal Aunt (Age mid 70s) Paternal Grandfather (Age late 70) Paternal Grandmother (Age mid 70) Paternal Uncle Alive Paternal Uncle (Age early 70s) Social History Date Tobacco Use Types Packs/Day [...] Travel Start No recent travel history available. Last Filed Vital Signs Time Taken Vital Sign Reading 01/31/2018 9:33 AM CDT Blood Pressure 120/60 01/31/2018 9:33 AM CDT Pulse 80 01/31/2018 9:33 AM CDT Temperature 36.9 C (98.4 F) - Respiratory Rate - 11/03/2016 6:52 AM CDT Oxygen Saturation 98% - Inhaled Oxygen - Concentration 01/31/2018 9:33 AM CDT Weight 124.7 kg (275 lb) 01/31/2018 9:33 AM CDT Height 177.8 cm (5' 10") 01/31/2018 9:33 AM CDT Body Mass Index 39.46 Plan of Treatment Health Maintenance Due Date Last Done Comments PHYSICAL (COMPREHENSIVE) 1961 EXAM COLORECTAL CANCER 2004 SCREENING SHINGLES RECOMBINANT 2004 VACCINE (1 of 2) INFLUENZA VACCINE 12/30/2018 01/31/2018, 05/29/2016, 05/03/2016, Additional history exists DTAP/TDAP VACCINES (2 - 02/01/2028 01/31/2018 Td) HIV SCREENING Completed 09/26/2017 Results Not on filefrom Last 3 Months Insurance Type Payer Benefit Subscriber ID Effective Phone Address Plan / Dates Group Medicaid [facility] MEDICAID [facility] xxxxxxxxxxx [id number] [employer] [place] Advance Directives Patient has advance care planning documents, and code status on file. For more information, please contact: [facility] [address] [place] [address] Date Inactivated Comments Code Status Date Activated 11/03/2016 12:21 PM Full Code 11/02/2016 6:19 AM Provider has discussed Code Status Yes w/Patient or Family?
--- OUTSIDE RECORDS SUMMARY | 2018-08-14 10:50 | XMS REPORT ---
Author Author KERWIN PETERS [facility] Address [address] [place] [address] Care Team Providers Care Rapid Outsole Stitcher Name Role Phone KERWIN PETERS Unavailable PROBLEMS Unknown Problems ALLERGIES No Information ENCOUNTERS Encounter Location Date Diagnosis [facility] [address] [facility] [id number] [address] Dec, Encounter for immunization Z23 IMMUNIZATIONS Vaccine Route Administration Date Status TWINRIX (HEP A/B) IM Intramuscular Dec 30, 2017 Administered SOCIAL HISTORY Never Assessed REASON FOR VISIT Immunization PLAN OF CARE VITAL SIGNS MEDICATIONS Unknown Medications RESULTS No Results PROCEDURES Procedure Date Ordered Result Body Site TWINRIX (HEP A/B) Dec 30, 2017 SINGLE IMMUNIZATION ADMIN Dec 30, 2017 INSTRUCTIONS MEDICATIONS ADMINISTERED No Known Medications
--- OUTSIDE RECORDS SUMMARY | 2018-08-14 10:50 | XMS REPORT | Encounter Summary ---
Author Author [facility] Organization [facility] Address Unknown Phone Unavailable Care Team Providers Care Sociocultural Anthropology Professor Name Role Phone Chirag Balderas MD PCP Reason for Visit * Reason Comments Medication Refill Encounter Details Care Team Description Date Type Department EmerTorin boyer MD [address] [facility] [place] [address] [phone] Medication Refill 06/23/2018 Refill [facility] [address] [place] [address] Social History Date Tobacco Use Types Packs/Day [...] history available. documented as of this encounter Plan of Treatment Not on filedocumented as of this encounter Visit Diagnoses Not on filedocumented in this encounter
--- OUTSIDE RECORDS SUMMARY | 2018-08-14 10:50 | XMS REPORT | Encounter Summary ---
Author Author [facility] Organization [facility] Address Unknown Phone Unavailable Care Team Providers Care Ssis Developer Name Role Phone Chirag Balderas MD PCP Encounter Details Care Team Description Date Type Department Veda Karimi RN Hep C w/o coma, chronic (HCC); Chronic obstructive pulmonary disease, unspecified COPD type (HCC) 05/21/2018 Orders Only The [address] [address] Social History Date Tobacco Use Types [...] Not on filedocumented as of this encounter Procedures Comments Procedure Name Priority Date/Time Associated Diagnosis HEPATITIS C VIRAL LOAD Routine 04/28/2018 Hep C w/o coma, chronic PCR QUANT (HCC) Chronic obstructive pulmonary disease, unspecified COPD type (HCC) CBC AND DIFF Routine 04/28/2018 Hep C w/o coma, chronic (HCC) Chronic obstructive pulmonary disease, unspecified COPD type (HCC) COMPREHENSIVE METABOLIC Routine 04/28/2018 Hep C w/o coma, chronic PANEL (HCC) Chronic obstructive pulmonary disease, unspecified COPD type (HCC) documented in this encounter Results * HEPATITIS C VIRAL LOAD PCR QUANT (04/28/2018) Hepatitis C PCR Not detected <15 [facility] Quantitative [place] Specimen Blood - Blood Narrative Performed At Performing Organization Address City/State/Zipcode Phone Number [facility] [address] [place], [place] [address] [phone] * COMPREHENSIVE METABOLIC PANEL (04/28/2018) [facility] Sodium 139 132 - 145 [facility] [place] Potassium 4.3 3.5 - 5.5 [facility] [place] Chloride 103 95 - 110 [facility] [place] CO2 29 24 - 34 [facility] [place] Blood Urea 16 9 - 27 [facility] Nitrogen [place] Creatinine 0.9 0.6 - 1.5 [facility] [place] Glucose 98 60 - 125 [facility] [place] Calcium 9.3 8.5 - 10.8 [facility] [place] Total Protein 7.3 6.0 - 8.0 [facility] [place] Total Bilirubin 0.4 0.1 - 1.4 [facility] [place] Albumin 4.1 3.6 - 4.8 [facility] [place] Alk Phosphatase 52 30 - 115 [facility] [place] AST (SGOT) 18 0 - 40 [facility] [place] ALT (SGPT) 15 10 - 35 [facility] [place] eGFR Non [facility] [place] Chinese eGFR [facility] Chinese [place] Anion Gap [facility] [place] Specimen Blood - Blood Narrative Performed At Performing Organization Address City/[facility]/Zipcode Phone Number [facility] [address] [place] [address] 10A * CBC AND DIFF (04/28/2018) Pathologist [facility] White Blood 5.33 5 - 10 [facility] Cells [place] RBC 6.18 (A) 4.2 - 5.4 [facility] [place] Hemoglobin 15.1 14 - 17 [facility] [place] Hematocrit 46.8 42 - 52 [facility] [place] MCV 75.7 (A) 80 - 97 [facility] [place] MCH 24.4 (A) 27 - 31 [facility] [place] MCHC 32.3 32 - 36 [facility] [place] Platelet Count 193 150 - 400 [facility] [place] MPV [facility] [place] RDW 16.3 (A) 11.0 - 14.8 [facility] [place] Neutrophils 47.4 37 - 80 [facility] [place] Absolute 2.53 2 - 6.9 [facility] Neutrophil [place] Count Lymphocytes 37.9 10 - 50 [facility] [place] Absolute Lymph 2.02 0.6 - 3.4 [facility] Count [place] Monocytes 10.5 0 - 12 [facility] [place] Absolute 0.6 0.0 - 0.9 [facility] Monocyte Count [place] Eosinophil 3.8 0 - 7 [facility] [place] Absolute 0.2 0 - 0.7 [facility] Eosinophil [place] Count Basophils 0.1 0.0 - 2.5 [facility] [place] Absolute 0.0 0.0 - 0.2 [facility] Basophil Count [place] Atypical Lym [facility] [place] Metamyelocyte [facility] [place] Myelocyte [facility] [place] Promyelocyte [facility] [place] Blast [facility] [place] RBC Morph [facility] [place] WBC Morphology [facility] [place] Specimen Blood - Blood Narrative Performed At Performing Organization Address City/State/Zipcode Phone Number [facility] [address] [place] [address] [phone] documented in this encounter Visit Diagnoses Diagnosis Hep C w/o coma, chronic (HCC) Chronic hepatitis C without mention of hepatic coma Chronic obstructive pulmonary disease, unspecified COPD type (HCC) documented in this encounter
[2018-08-14 10:53] VITALS: BP 122/81
[2018-08-14] MEDS ORDERED: DILT120T3 PO (11:09)
[2018-08-14] MEDS ORDERED: MONT10TA24 PO (11:09)
[2018-08-14] MEDS ORDERED: CETI10TA20 PO (11:09)
[2018-08-14] MEDS ORDERED: ATOR10TA PO (11:09)
[2018-08-14] MEDS ORDERED: FAMO20TA3 PO (11:09)
[2018-08-14] MEDS ORDERED: FLUT1AER IH (11:09)
[2018-08-14] MEDS ORDERED: RT-ALBUINH IH (11:09)
[2018-08-14] MEDS ORDERED: LOSA50TA63 PO (11:09)
[2018-08-14] MEDS ORDERED: HYDR25TA4 PO (11:09)
--- NOTE | 2018-08-14 11:40 | Cardioversion ---
Cardioversion PROCEDURE PHYSICIAN: Lanny Sagastume MD DATE OF PROCEDURE: 08/14/18 DIRECT EXTERNAL ELECTRICAL CARDIOVERSION: Indications: Atrial Fibrillation Preoperative diagnoses: Atrial Fibrillation Postoperative diagnosis: Unsuccessful Electrical Cardioversion History: This is a 62-year-old gentleman with persistent atrial fibrillation on multaq. Anesthesia: By Anesthesia services Complications: None Specimen: None Contrast: 0 Flouroscopy: none Procedure Details: The patient was brought the brick and blocker aid labor after informed consent was taken, all the risks and complications were explained including the risk of stroke. Electrical cardioversion was carried out with anesthesia support with propofol. 200 joules x3 of synchronized shock was delivered through external patches which did not restore sinus rhythm. The patient tolerated the procedure well. Conclusions: 1.Unsuccessful Cardioversion. 2.Continue oral anticoagulation and rate controlling agent. Discontinue multaq. 3.Follow up in office on previously scheduled appointment. Lanny Sagastume MD, FHRS, CCDS Cardiac Electrophysiology Roger SAGASTUME MD August 14, 2018 11:40
--- NOTE | 2018-08-14 13:53 | Anesthesia-General Post-Op ---
MAC Patient Condition Mental Status/LOC: Same as Preop Cardiovascular: Satisfactory Nausea/Vomiting: Absent Respiratory: Satisfactory Pain: Controlled Complications: Absent Post Op Complications Complications None Follow Up Care/Instructions Patient Instructions None needed. Anesthesiology Discharge Order Discharge Order Patient is doing well, no complaints, stable vital signs, no apparent adverse anesthesia problems. No complications reported per nursing. FREDI BRITTON CRNA August 14, 2018 13:53
== END 2018-08-14 11:23 | disposition home or self-care (01) ==
LOC: CATH 08:43
PROVIDERS: ATTEND Internal Medicine Interventional Cardiology
DX: I48.1 Persistent atrial fibrillation (principal); I10 Essential (primary) hypertension; I08.1 Rheumatic disorders of both mitral and tricuspid valves; E78.1 Pure hyperglyceridemia; J44.9 Chronic obstructive pulmonary disease, unspecified; N40.0 Benign prostatic hyperplasia without lower urinary tract symptoms; Z79.01 Long term (current) use of anticoagulants; Z79.899 Other long term (current) drug therapy; Z87.891 Personal history of nicotine dependence
CPT/HCPCS: 92960; 93005

== ENCOUNTER → 2018-08-15 | Outpatient (CLI) | payer MEDICARE, MEDICAID ==
[~2018-08-15] MED LIST changes: +ATOR10TA PO; +CETI10TA20 PO; +DILT120T3 PO; +FLUT1AER IH; +HYDR25TA4 PO; +LOSA50TA63 PO; +MONT10TA24 PO; +RT-ALBUINH IH
--- NOTE | 2018-08-15 16:39 | Diagnostic Imaging Report ---
INDICATION: History of tobacco use with a 68 pack year history. Quit smoking 13 years ago. TECHNIQUE: Noncontrast, low-dose CT imaging performed according to lung cancer screening protocol. COMPARISON: CT angio chest 08/14/2017, CT chest 11/20/2015 FINDINGS: HEART/MEDIASTINUM: Heart size is normal. There is scattered pericardial effusion present. Maximum thickness anteriorly at 14 mm. Scattered coronary artery calcification. Thoracic aortic contour unremarkable. No suggestion for pathologically enlarged mediastinal lymph nodes on limited, noncontrast imaging. LUNGS: Advanced emphysematous changes are present. Bullous changes about the lung apices. No infiltrate. There is new consolidation and atelectasis with volume loss of the right middle lobe. There is irregularity suggested about the central bronchial structures with question of endobronchial occlusion centrally (image 123 series 2). Underlying mass lesion is questioned. OTHER: None. IMPRESSION: 1. Advanced emphysematous changes about the lung parenchyma. There has been development of consolidation of a significant portion of the right middle lobe with questionable bronchial occlusion centrally. Definitive quantifiable mass lesion is not excluded. This could be owing to atelectasis from perhaps inflammatory infectious etiology, however a central obstructing mass lesion should be excluded. 2. Small pericardial effusion. LUNG-RADS CATEGORY: 4X LUNG SCREENING MANAGEMENT/RECOMMENDATIONS: Short-term followup post IV contrast-enhanced imaging of the chest is recommended. If there are findings concerning for potential infectious etiology, imaging to be obtained post antibiotic treatment course would be a consideration. If findings persist at followup imaging assessment, bronchoscopy would likely be recommended. Notes: Lung rads category 1 or 2 does not mean that an individual does not have lung cancer or other active disease process, but rather nothing is identified to meet criteria for current lung pathology. Therefore, continued annual lung cancer screening should be performed. It is noted that this is a low dose CT examination. As a technical result, the examination is limited in overall assessment compared to a conventional CT examination of the chest. Message left at 3:29 p.m. 08/15/2018 for a call back. Report faxed at 3:32 p.m. 08/15/2018/oscar Dictated by: Dictated on workstation # [id number]
== END ==
LOC: RAD 09:38
PROVIDERS: ATTEND Nurse Practitioner Family
DX: J43.9 Emphysema, unspecified (principal); I31.3 Pericardial effusion (noninflammatory); Z87.891 Personal history of nicotine dependence

== ENCOUNTER 2018-08-20 05:36 | Outpatient (CLI) | payer MEDICARE, MEDICAID ==
[~2018-08-20] VITALS: Ht 177.8 cm; Wt 125.2 kg
== END 2018-08-20 10:42 | disposition home or self-care (01) ==
LOC: PREOP 05:36
PROVIDERS: ATTEND Internal Medicine Critical Care Medicine
DX: Z01.818 Encounter for other preprocedural examination (principal)

== ENCOUNTER 2018-08-21 08:00 | Day surgery (SDC) | payer MEDICARE, MEDICAID ==
[~2018-08-21] VITALS: Ht 177.8 cm; Wt 125.2 kg
[2018-08-21] MEDS ORDERED: LIDOCAINE PF 1% 2 ML VIAL IJ ONE (08:01)
[2018-08-21] MEDS ORDERED: LIDOCAINE JELLY 2% 6 ML SYRINGE MM ONE (08:01)
[2018-08-21] MEDS ORDERED: LIDOCAINE PF 2% 5 ML (XYLOCAINE) VIAL INJ ONE (08:01)
[2018-08-21] MEDS ORDERED: NS IV 500 ML 500 ML ONE (08:17)
[2018-08-21] MEDS ORDERED: NS IV 500 ML 500 ML IV PRN (08:17)
[2018-08-21 08:25] VITALS: BP 130/99
[2018-08-21] MEDS ORDERED: MIDAZOLAM 2 MG/2 ML (VERSED) VIAL IVP ONE (08:30)
--- NOTE | 2018-08-21 08:36 | Progress Note-Pre Operative ---
Pre-Operative Progress Note H&P Reviewed The H&P was reviewed, patient examined and no changes noted. Time Seen by Provider: 09:00 Date H&P Reviewed: August 21, 2018 Time H&P Reviewed: 08:36 Pre-Operative Diagnosis: PNA, atelectasis PHU RHOADES DO August 21, 2018 08:36
--- NOTE | 2018-08-21 08:37 | Pre-Op Note & Conscious Sedat ---
Pre-Operative Progress Note H&P Reviewed The H&P was reviewed, patient examined and no changes noted. Date H&P Reviewed: August 21, 2018 Time H&P Reviewed: 08:36 Conscious Sedation Pre-Proced Time 08:36 ASA Score 3 For ASA 3 and 4: Consider anesthesia and medical clearance. Also, for patients with a history of failed moderate sedation consider anesthesia. Airway Lungs Heart ASA score ASA 1: a normal healthy patient ASA 2: a patient with a mild systemic disease (mid diabetes, controlled hypertension, obesity ASA 3: a patient with a severe systemic disease that limits activity (angina, COPD, prior Myocardial infarction) ASA 4: a patient with an incapacitating disease that is a constant threat to life (CHF, renal failure) ASA 5: a moribund patient not expected to survive 24 hrs. (ruptured aneurysm) ASA 6: a declared brain- patient whose organs are being harvested. For emergent operations, add the letter E after the classification Mallampati Classification Grade 3 Sedation Plan Analgesia, Amnesia, Plan communicated to team members, Discussed options with patient/fam, Discussed risks with patient/fam The patient is an appropriate candidate to undergo the planned procedure, sedation, and anesthesia. The patient immediately re-assessed prior to indication. PHU RHOADES DO August 21, 2018 08:37
[2018-08-21] MEDS ORDERED: fentaNYL INJECTION 100 MCG/2 ML AMP ONE ×2 (09:14→09:45)
[2018-08-21] MEDS ORDERED: MIDAZOLAM 2 MG/2 ML (VERSED) VIAL ONE ×4 (09:15→09:45)
[2018-08-21] MEDS: fentaNYL INJECTION 100 MCG/2 ML AMP IVP ONE (09:36)
--- NOTE | 2018-08-21 10:12 | Pulmonary Procedures ---
Pulmonary Procedures Date of Procedure Date of Service: August 21, 2018 Bronch Bronchoscopy with Percepta brush of mainstem jocelyn, LLL bronchoalveolar lavage (BAL), washes and, transbronchial brushes using fluoroscopy . Preop DX PNA, atelectasis Postop DX: same - No endobronchial mass. Complications: none After informed consent obtained and formal time out pt was sedated using Fentanyl and Versed. Bronchoscope was advanced through the nare and vocal cords. 1% lidocaine was used to anesthetize vocal cords, epiglottis, jocelyn, and left/right main stem bronchus. An anatomical tour was undertaken down to the segmental bronchi bilaterally. No endobronchial lesions noted. There was blood and mucous oozing from LLL however no endobronchial mass. Bronchoscopy with Percepta brush of mainstem jocelyn, LLL bronchoalveolar lavage (BAL), washes and, transbronchial brushes using fluoroscopy were obtained. Pt tolerated procedure well. No complications noted. Stat CXR is pending. PHU RHOADES DO August 21, 2018 10:12
[2018-08-21 10:25] VITALS: BP 130/99
--- NOTE | 2018-08-21 10:28 | Diagnostic Imaging Report ---
Indication: Post bronch. Findings: There is no pneumothorax or pneumomediastinum. There is right middle lobe opacity not appreciably changed when correlated with chest CT 08/15/2018. Impression: Right middle lobe density redemonstrated. No pneumothorax, pneumomediastinum or pleural fluid. Dictated by: Dictated on workstation # [id number]
[2018-08-21 10:55] VITALS: BP 137/85
[2018-08-21 11:00] VITALS: BP 137/85
--- NOTE | 2018-08-21 19:16 | Diagnostic Imaging Report ---
INDICATION: Bronchoscopy, bronchial occlusion Intraoperative view demonstrates bronchoscope in place. One second of fluoroscopy time was used in surgery. IMPRESSION: Intraoperative fluoroscopy view performed during bronchoscopy as above. Dictated by: Dictated on workstation # [id number]
== END 2018-08-21 11:00 | disposition home or self-care (01) ==
LOC: ENDO 08:00
PROVIDERS: ATTEND Internal Medicine Critical Care Medicine
DX: J18.9 Pneumonia, unspecified organism (principal); J44.0 Chronic obstructive pulmonary disease with (acute) lower respiratory infection; J30.9 Allergic rhinitis, unspecified; J98.11 Atelectasis; G47.33 Obstructive sleep apnea (adult) (pediatric); I48.0 Paroxysmal atrial fibrillation; Z87.891 Personal history of nicotine dependence; E66.9 Obesity, unspecified; Z68.39 Body mass index [BMI] 39.0-39.9, adult; Z79.01 Long term (current) use of anticoagulants; Z79.899 Other long term (current) drug therapy
CPT/HCPCS: 71045; 87015; 87070; 87077; 87101; 87116; 87184; 87205; 87206

== ENCOUNTER → 2018-09-01 | Outpatient (CLI) | payer MEDICARE, MEDICAID ==
--- NOTE | 2018-09-01 09:18 | Diagnostic Imaging Report ---
Indication: Pneumonia. Time of exam: 8:54 AM Correlation is made with prior study from 08/21/2018. The heart size is stable. Lungs are hyperinflated consistent with COPD. There is some patchy density in the right base mildly improved since prior exam. Left lung is clear. No effusion or pneumothorax is seen. Impression: Improved aeration to the right base when compared with examination from 08/21/2018. Dictated by: Dictated on workstation # [id number]
== END ==
LOC: RAD 08:46
PROVIDERS: ATTEND Nurse Practitioner Family
DX: J18.9 Pneumonia, unspecified organism (principal); B95.3 Streptococcus pneumoniae as the cause of diseases classified elsewhere; J44.9 Chronic obstructive pulmonary disease, unspecified; G47.34 Idiopathic sleep related nonobstructive alveolar hypoventilation; E66.9 Obesity, unspecified; Z87.891 Personal history of nicotine dependence
CPT/HCPCS: 71046

== ENCOUNTER → 2018-10-20 | Outpatient (CLI) | payer MEDICARE, MEDICAID ==
[~2018-10-20] MED LIST changes: +HOLD METFORMIN - RECEIVED CONTRAST 20 ML VIAL IV SCH; +IOHEXOL 350 MG/ML 100 ML (OMNIPAQUE 350) VIAL IV ONE; +NS 100 ML (IVPB) BAG IV ONE
[2018-10-20 07:31] LABS: BUN/CREATININE RATIO 18; CREATININE SERUM 0.98 MG/DL (0.60-1.30); GFR ESTIMATED > 60
--- NOTE | 2018-10-20 09:12 | Diagnostic Imaging Report ---
PROCEDURE: CT chest with contrast only. TECHNIQUE: Multiple contiguous axial images were obtained through the chest after administration of intravenous contrast. Auto Exposure Controls were utilized during the CT exam to meet ALARA standards for radiation dose reduction. DATE: October 20, 2018. COMPARISON: Chest radiographs September 01, 2018. CT chest August 14, 2017. November 20, 2015. INDICATION: 62-year-old male, followup streptococcus pneumonia. FINDINGS: There is no identified pulmonary nodule or lung mass. There are mild linear opacities in the right upper lobe and right middle lobe compatible with atelectasis and/or scarring. There are dependent linear opacities in the right lower lobe likely relating to atelectasis. There is no additional focal airspace consolidation. There is no pneumothorax. There is no pleural effusion. The central airways are patent. There are mild upper lobe predominant changes of emphysema. There is nondiagnostic assessment for pulmonary embolus given the timing of the contrast bolus. The main pulmonary artery is normal in caliber. The heart is not enlarged. There is no pericardial effusion. There are atherosclerotic calcifications. There is no identified abnormally enlarged mediastinal, hilar, or axillary lymph node which meets CT size criteria for adenopathy. There are 3 separately identified 4 mm low-attenuation lesions in the liver on axial image 49 which are too small to characterize. These are unchanged since at least August 14, 2017. There is a 5 mm low-attenuation lesion in the left lobe of the liver on image 57 which is also too small to characterize and also unchanged since prior post contrast CT chest. There is cholelithiasis without findings to suggest acute cholecystitis. Additional evaluation of the imaged portions of the upper abdomen is unremarkable. There is no identified acute bony abnormality. IMPRESSION: CT CHEST. 1. Mild linear opacities in the right upper lobe and right middle lobe compatible with atelectasis and/or scarring. Additional peripheral dependent opacities in the right lower lobe also most likely reflecting atelectasis. No airspace consolidation currently visualized suspicious for active pneumonia or other acute cardiopulmonary process. 2. Mild upper lobe predominant changes of emphysema. 3. Cholelithiasis without evidence of acute cholecystitis. Dictated by: Dictated on workstation # [id number]
== END ==
LOC: RAD 06:55
PROVIDERS: ATTEND Nurse Practitioner Family
DX: J43.9 Emphysema, unspecified (principal); B95.3 Streptococcus pneumoniae as the cause of diseases classified elsewhere; K80.20 Calculus of gallbladder without cholecystitis without obstruction; G47.34 Idiopathic sleep related nonobstructive alveolar hypoventilation; E66.9 Obesity, unspecified; Z87.891 Personal history of nicotine dependence
CPT/HCPCS: 36415; 71260; 82565; 84520

== ENCOUNTER → 2019-01-19 | Outpatient (CLI) | payer MEDICARE, MEDICAID ==
[~2019-01-19] MED LIST changes: +CATHETER FLUSH 10 ML SYR IV PRN
[2019-01-19 08:38] LABS: BUN/CREATININE RATIO 16; CREATININE SERUM 0.96 MG/DL (0.60-1.30); GFR ESTIMATED > 60
--- NOTE | 2019-01-19 09:21 | Diagnostic Imaging Report ---
EXAMINATION: CT Chest with intravenous contrast. TECHNIQUE: Multiple contiguous axial images were obtained through the chest after the uneventful administration of intravenous contrast. All CT scans use one or more of the following dose optimizing techniques: automated exposure control, MA and/or KvP adjustment based on a patient size and exam type, or iterative reconstruction. HISTORY: COPD COMPARISON: 10/20/2018 FINDINGS: There is moderate emphysema. There is mild dependent atelectasis and right middle lobe atelectasis. The lungs are clear without edema or pneumonia. No pleural effusion or pneumothorax. No suspicious nodules. Heart size is normal. No pericardial effusion. Aorta is normal in caliber. There is no axillary or supraclavicular lymphadenopathy. There is no mediastinal lymphadenopathy. Tiny indeterminate liver lesions are unchanged. Cholelithiasis is seen. There is some focal fat at the gallbladder fossa. There are no suspicious osseus lesions. IMPRESSION: 1. Moderate emphysema Dictated by: Dictated on workstation # [id number]
== END ==
LOC: RAD 08:03
PROVIDERS: ATTEND Nurse Practitioner Family
DX: J98.11 Atelectasis (principal); B95.3 Streptococcus pneumoniae as the cause of diseases classified elsewhere; G47.30 Sleep apnea, unspecified; R91.8 Other nonspecific abnormal finding of lung field; E66.9 Obesity, unspecified; R09.02 Hypoxemia; Z87.891 Personal history of nicotine dependence; J43.9 Emphysema, unspecified
CPT/HCPCS: 36415; 71260; 82565; 84520

== ENCOUNTER 2019-02-05 09:30 | Outpatient (RCR) | payer MEDICARE, MEDICAID ==
[2018-12-02 09:20] VITALS: BP 170/50
[2018-12-02 10:35] VITALS: BP 160/60
[2018-12-04 09:20] VITALS: BP 160/78
[2018-12-04 10:45] VITALS: BP 123/80
[2018-12-09 09:30] VITALS: BP 170/50
[2018-12-09 10:30] VITALS: BP 154/49
[2018-12-11 09:30] VITALS: BP 168/85
[2018-12-11 10:41] VITALS: BP 170/60
[2018-12-16 09:30] VITALS: BP 140/60
[2018-12-16 10:36] VITALS: BP 142/63
[2018-12-18 09:30] VITALS: BP 144/80
[2018-12-18 10:45] VITALS: BP 150/74
[2018-12-25 09:30] VITALS: BP 120/60
[2018-12-25 10:45] VITALS: BP 160/70
[2018-12-30 09:15] VITALS: BP 150/79
[2018-12-30 09:30] VITALS: BP 150/79
[2018-12-30 10:40] VITALS: BP 115/64
[2019-01-01 09:30] VITALS: BP 160/60
[2019-01-01 10:45] VITALS: BP 150/72
[2019-01-08 09:30] VITALS: BP 110/50
[2019-01-08 10:34] VITALS: BP 142/80
[2019-01-13 09:30] VITALS: BP 150/60
[2019-01-13 10:24] VITALS: BP 160/50
[2019-01-15 09:30] VITALS: BP 150/60
[2019-01-15 10:41] VITALS: BP 150/70
[2019-01-20 09:20] VITALS: BP 160/60
[2019-01-20 10:30] VITALS: BP 160/70
[2019-01-22 09:23] VITALS: BP 162/50
[2019-01-22 10:40] VITALS: BP 160/50
[2019-01-27 09:30] VITALS: BP 170/70
[2019-01-27 10:30] VITALS: BP 150/80
[2019-01-29 09:30] VITALS: BP 142/80
[2019-01-29 10:30] VITALS: BP 150/40
[2019-02-03 09:23] VITALS: BP 180/60
[2019-02-03 10:32] VITALS: BP 140/80
[2019-02-05 09:30] VITALS: BP 160/78
[~2019-02-05 09:30] MED LIST changes: -CATHETER FLUSH 10 ML SYR IV PRN; -HOLD METFORMIN - RECEIVED CONTRAST 20 ML VIAL IV SCH; -IOHEXOL 350 MG/ML 100 ML (OMNIPAQUE 350) VIAL IV ONE; -NS 100 ML (IVPB) BAG IV ONE
[2019-02-05 10:53] VITALS: BP 150/60
== END 2019-02-24 | disposition home or self-care (01) ==
LOC: PULM 09:30
PROVIDERS: ATTEND Nurse Practitioner Family
DX: J44.9 Chronic obstructive pulmonary disease, unspecified (principal); R91.8 Other nonspecific abnormal finding of lung field; J98.11 Atelectasis; Z87.891 Personal history of nicotine dependence; R09.02 Hypoxemia; G47.30 Sleep apnea, unspecified
CPT/HCPCS: 99211

== ENCOUNTER → 2020-01-28 | Outpatient (CLI) | payer MEDICARE, MEDICAID ==
[~2020-01-28] MED LIST changes: +ACHYD1T PO; -CETI10TA20 PO; +CETI10TA49 PO; -HYDR-3820 PO; -MONT10TA24 PO; +MONT10TA26 PO; -WARF10TA44 PO; +WRF10T PO
--- NOTE | 2020-01-28 10:27 | Diagnostic Imaging Report ---
CT Lung Screening INDICATION:68 pack-year smoking history TECHNIQUE: Noncontrast, low-dose CT imaging performed according to the lung cancer screening protocol. Auto Exposure Controls were utilize during the CT exam to meet ALARA standards for radiation dose reduction. COMPARISON:CT chest 01/19/2019. FINDINGS:The previous CT chest exam 01/19/2019 noted moderate emphysematous changes involving both lungs but failed to show any sign of a parenchymal lung nodule. On this exam there is still no parenchymal lung mass identified that would suggest a malignant process. The scar formation along the medial aspect of the right upper lobe and the pleural thickening along the anterior aspect of the right middle lobe seen on the prior study are again evident and no different. The heart size is stable and within normal limits. There are coronary artery calcifications evident. The aorta is not abnormally dilated. There is no obvious mediastinal or hilar adenopathy. The thyroid gland where visualized is unremarkable. The sections through the upper abdomen failed to show any sign of an acute abnormality. Cholelithiasis is again noted. The bone windows are unremarkable for a fracture or for destructive lesion. IMPRESSION: 1. There is no evidence for a parenchymal lung mass. A followup low-dose lung cancer screening exam in one year would be recommended for continued evaluation. 2. There are emphysematous changes involving both lungs and chronic pulmonary disease in the right lung. There is no acute cardiopulmonary abnormality appreciated. 3. The heart is not enlarged but there are coronary calcifications evident. 4. There is cholelithiasis without evidence for acute cholecystitis. LUNG-RADS CATEGORY:1 MODIFIER: OTHER SIGNIFICANT FINDINGS: Dictated by: Dictated on workstation # [id number]
== END ==
LOC: RAD 09:16
PROVIDERS: ATTEND Nurse Practitioner Family
DX: J44.9 Chronic obstructive pulmonary disease, unspecified (principal); K80.20 Calculus of gallbladder without cholecystitis without obstruction; E66.9 Obesity, unspecified; R91.8 Other nonspecific abnormal finding of lung field; Z87.891 Personal history of nicotine dependence

== ENCOUNTER → 2020-08-17 | Outpatient (CLI) | payer MEDICAID, MEDICARE ==
[~2020-08-17] VITALS: Ht 177 cm; Wt 127.0 kg
[~2020-08-17] MED LIST changes: +CATHETER FLUSH 10 ML SYR IV PRN; -MONT10TA26 PO; +MONT10TA32 PO; +REGADENOSON 0.4 MG/5 ML SYR (LEXISCAN) IV ONE
[2020-08-17 09:20] VITALS: BP 177/85
--- NOTE | 2020-08-17 13:23 | Cardiology Stress Test Report ---
Stress Test Report Date of Procedure/Referring: Date of Procedure: August 17, 2020 April Rivers Admitting Physician Chirag Balderas MD Indications: CAD Baseline Heart Rate: 76 Baseline Blood Pressure: Blood Pressure Systolic: 177 Blood Pressure Diastolic: 85 Baseline Vitals Vital Signs Date Time Temp Pulse Resp B/P (MAP) Pulse Ox O2 Delivery O2 Flow Rate FiO2 08/17/20 09:20 76 177/85 (115) Baseline EKG: Baseline EKG: NSR Summary After explaining the procedure to the patient, he signed a consent and then brought to the stress nuclear laboratory. Patient received 0.4 mg Lexiscan for stress test, ECG, heart rate and blood pressure were monitored continuously. Resting and stress dose of radio tracer were injected, imaging was acquired and reviewed in short axis, horizontal long axis and vertical long axis views. TID: 1.01 SSS: 6 SDS: 5 EF: 73 1. Patient tolerated Lexiscan well 2. Diaphragmatic attenuation with decreased uptake involving the mid to apical inferior wall and inferolateral wall with mild reversibility, most probably due to the extracardiac attenuation 3. Normal left ventricular size, EF 73% GAYLE TENORIO MD August 17, 2020 13:23
== END ==
LOC: CARD 07:30
PROVIDERS: ATTEND Physician Assistant
DX: I25.10 Atherosclerotic heart disease of native coronary artery without angina pectoris (principal)
CPT/HCPCS: 78452; 93017; A9502

== ENCOUNTER → 2021-01-30 | Outpatient (CLI) | payer MEDICARE ==
[~2021-01-30] MED LIST changes: -CATHETER FLUSH 10 ML SYR IV PRN; -REGADENOSON 0.4 MG/5 ML SYR (LEXISCAN) IV ONE; +RT-ALBUTEROL SULF 2.5 MG/3 ML PRE-MIX VIAL INH ONE
== END ==
LOC: RT 12:42
PROVIDERS: ATTEND Nurse Practitioner Family
DX: J44.9 Chronic obstructive pulmonary disease, unspecified (principal)
CPT/HCPCS: 94060; 94726; 94729

== ENCOUNTER → 2021-07-17 | Outpatient (CLI) | payer MEDICARE ==
[~2021-07-17] MED LIST changes: +MONT-40 PO; -MONT10TA32 PO; -RT-ALBUTEROL SULF 2.5 MG/3 ML PRE-MIX VIAL INH ONE
== END ==
LOC: CARD 13:00
PROVIDERS: ATTEND Physician Assistant
DX: I11.9 Hypertensive heart disease without heart failure (principal)
CPT/HCPCS: 93306

== ENCOUNTER → 2022-08-22 | Day surgery (SDC) | payer MEDICARE, OTHER ==
[~2022-08-22] VITALS: Ht 177.8 cm; Wt 129.6 kg
[~2022-08-22] MED LIST changes: +ALBU8.5H6 IH; +LIDOCAINE 1% INJ 20 ML VIAL INJ ONE; +LIDOCAINE 1% INJ 20 ML VIAL ONE; -RT-ALBUINH IH
--- NOTE | 2022-08-22 10:39 | Implantation of Loop Monitor ---
Implant of Loop Monitior IMPLANTATION OF LOOP MONITOR REPORT DATE OF PROCEDURE: 08/22/22 PREOP DIAGNOSIS: Paroxysmal atrial fibrillation POSTOP DIAGNOSIS: Paroxysmal atrial fibrillation PROCEDURE DETAILS: The patient is a 66 male with history of paroxysmal atrial fibrillation requiring long-term surveillance. Therefore implantable loop recorder was discussed and agreed with the patient. Informed consent was taken. All risks and complications were discussed at length. The patient was draped and prepped in the usual sterile fashion. Local anesthesia was lidocaine, which was given in the substernal area close to the 4th intercostal space. Loop monitor [employer] with serial number [id number] was implanted according to the protocol. Steri- Strips were placed at the end of the procedure. There were no complications and the patient tolerated the procedure well. The device was interrogated with a voltage of. ANESTHESIA: Local anesthesia with lidocaine. COMPLICATIONS: None CONTRAST/FLUOROSCOPY: None CONCLUSION: Successful implantation of loop monitor with no complication FINAL DIAGNOSIS: Paroxysmal atrial fibrillation Hypertension Hyperlipidemia GAYLE TENORIO MD August 22, 2022 10:39
== END ==
LOC: CATH 08:56
PROVIDERS: ATTEND Internal Medicine Cardiovascular Disease
DX: I48.0 Paroxysmal atrial fibrillation (principal); I10 Essential (primary) hypertension; I65.23 Occlusion and stenosis of bilateral carotid arteries; E66.9 Obesity, unspecified; R60.0 Localized edema; G47.30 Sleep apnea, unspecified; N40.0 Benign prostatic hyperplasia without lower urinary tract symptoms; B19.20 Unspecified viral hepatitis C without hepatic coma; E78.2 Mixed hyperlipidemia; Z68.41 Body mass index [BMI] 40.0-44.9, adult; Z87.891 Personal history of nicotine dependence; Z79.01 Long term (current) use of anticoagulants; Z79.899 Other long term (current) drug therapy
CPT/HCPCS: 33285; C1764

== ENCOUNTER → 2022-09-12 | Outpatient (CLI) | payer MEDICARE ==
[~2022-09-12] VITALS: Ht 177 cm; Wt 128.0 kg
[~2022-09-12] MED LIST changes: +AMIO200T65 PO; +CATHETER FLUSH 10 ML SYR IVP PRN; -LIDOCAINE 1% INJ 20 ML VIAL INJ ONE; -LIDOCAINE 1% INJ 20 ML VIAL ONE; -LOSA100T57 PO; +LOSA100T58 PO; +METO50TA7 PO; +REGADENOSON 0.4 MG/5 ML SYR (LEXISCAN) IV ONE; +meTOprolol 5 MG/5 ML (LOPRESSOR) VIAL IV ONE; +meTOprolol 5 MG/5 ML (LOPRESSOR) VIAL ONE
[2022-09-12 09:29] VITALS: BP 166/105
--- NOTE | 2022-09-12 13:18 | Cardiology Stress Test Report ---
Stress Test Report Date of Procedure/Referring: Date of Procedure: Sep 12, 2022 PCP Raul Quinn MD Admitting Physician Admitting Physician: Attending Physician: Mable Eastman MD Baseline Heart Rate: 115 Baseline Blood Pressure: Blood Pressure Systolic: 166 Blood Pressure Diastolic: 105 Baseline Vitals Vital Signs Date Time Temp Pulse Resp B/P (MAP) Pulse Ox O2 Delivery O2 Flow Rate FiO2 09/12/22 09:29 100 166/105 (125) Baseline EKG: Baseline EKG: a fin Summary After explaining the procedure to the patient, he signed a consent and then brought to the stress nuclear laboratory. Patient received 0.4 mg Lexiscan for stress test, ECG, heart rate and blood pressure were monitored continuously. Resting and stress dose of radio tracer were injected, imaging was acquired and reviewed in short axis, horizontal long axis and vertical long axis views. TID: 1.19 SSS: 8 SDS: 3 EF: 50 Patient tolerated Lexiscan well Baseline atrial fibrillation with rapid ventricular response persisted during test Fixed defect at the apex and inferoapical segment with mild reversibility at the mid inferior wall. Normal left ventricular size, ejection fraction 50%, gated images are unreliable due to underlying atrial fibrillation Copy Copies To 1: RAUL QUINN MD, BASHAR J MD Sep 12, 2022 13:18
== END ==
LOC: CARD 08:11
PROVIDERS: ATTEND Internal Medicine Cardiovascular Disease
DX: I25.10 Atherosclerotic heart disease of native coronary artery without angina pectoris (principal); I10 Essential (primary) hypertension
CPT/HCPCS: 78452; 93017; A9502

== ENCOUNTER 2022-09-14 07:39 | Day surgery (SDC) | payer MEDICARE ==
[~2022-09-14] VITALS: Ht 177 cm; Wt 131.1 kg
[~2022-09-14 07:39] MED LIST changes: -AMIO200T65 PO; -CATHETER FLUSH 10 ML SYR IVP PRN; -METO50TA7 PO; -REGADENOSON 0.4 MG/5 ML SYR (LEXISCAN) IV ONE; -meTOprolol 5 MG/5 ML (LOPRESSOR) VIAL IV ONE; -meTOprolol 5 MG/5 ML (LOPRESSOR) VIAL ONE
[2022-09-14] MEDS ORDERED: NS IV 1000 ML 1,000 ML ONE (07:53)
[2022-09-14] MEDS ORDERED: LIDOCAINE 1% INJ 20 ML VIAL ONE (07:53)
[2022-09-14] MEDS ORDERED: HEParin (CATH LAB) 2,000 ML IV ONE (07:53)
[2022-09-14] MEDS ORDERED: LIDOCAINE 2% VISCOUS 15 ML UDC ONE (07:53)
[2022-09-14] MEDS ORDERED: NS IV 1000 ML 1,000 ML IV ONE (08:00)
[2022-09-14 08:15] VITALS: BP 170/94
--- NOTE | 2022-09-14 08:20 | Diagnostic Imaging Report ---
INDICATION: Arrhythmia Portable chest 8:00 AM There is a loop recorder projecting over the left side of the chest. Heart size and pulmonary vascularity are normal. Lungs are clear. There are no effusions or pneumothoraces. IMPRESSION: No acute abnormalities in the chest. Dictated by: Dictated on workstation # [id number]
[2022-09-14 08:38] LABS: HEMATOCRIT 47 % (40-54); HEMOGLOBIN 14.5 g/dL (13.3-17.7); MEAN CORPUSCULAR HEMOGLOBIN 24 pg (25-34); MEAN CORPUSCULAR HGB CONC 31 g/dL (32-36); MEAN CORPUSCULAR VOLUME 77 fL (80-99); MEAN PLATELET VOLUME 10.1 fL (9.0-12.2); PLATELET COUNT 279 10^3/uL (130-400); WHITE BLOOD COUNT 6.2 10^3/uL (4.3-11.0)
[2022-09-14 08:43] LABS: INR 1.1 (0.8-1.4)
[2022-09-14 08:48] LABS: BILIRUBIN,TOTAL 0.5 MG/DL (0.1-1.0); CALCIUM 9.1 MG/DL (8.5-10.1); CREATININE SERUM 1.1 MG/DL (0.60-1.30)
[2022-09-14] MEDS ORDERED: METO50TA7 PO (09:57)
[2022-09-14] MEDS ORDERED: AMIO200T65 PO (09:57)
[2022-09-14] MEDS ORDERED: fentaNYL INJ 100 MCG/2 ML AMP ONE (11:19)
[2022-09-14] MEDS ORDERED: MIDAZOLAM 5 MG/5 ML (VERSED) VIAL ONE (11:19)
[2022-09-14] MEDS ORDERED: VERAPAMIL 5 MG/2 ML (CALAN) VIAL IV ONE (11:19)
[2022-09-14] MEDS ORDERED: HEParin 1000 UNIT/ML (10ML VIAL) FOR BOLUS ONE (11:20)
[2022-09-14] MEDS ORDERED: NITRO DRIP 25000 MCG/D5W 250 ML IV ONE (11:20)
[2022-09-14] MEDS ORDERED: proPOfol 200 MG/20 ML (DIPRIVAN) VIAL IV ONE (11:20)
--- NOTE | 2022-09-14 11:34 | Cardiac Procedure Note-CS/ASA ---
Pre-Procedure Note Pre-Op Procedure Note Date H&P Reviewed: Sep 14, 2022 Time H&P Reviewed: 11:33 History & Physical: H&P Reviewed, Patient Examed, No changes noted Pre-Operative Diagnosis: shortness of breath, persistent atrial fibrillation, abnormal nucl stress Moderate Sedation PreProcedure Time 11:34 ASA Score 2 Airway Lungs Heart ASA score ASA 1: a normal healthy patient ASA 2: a patient with a mild systemic disease (mid diabetes, controlled hypertension, obesity ASA 3: a patient with a severe systemic disease that limits activity (angina, COPD, prior Myocardial infarction) ASA 4: a patient with an incapacitating disease that is a constant threat to life (CHF, renal failure) ASA 5: a moribund patient not expected to survive 24 hrs. (ruptured aneurysm) ASA 6: a declared brain- patient whose organs are being harvested. For emergent operations, add the letter E after the classification Mallampati Classification Grade 1 Sedation Plan Analgesia, Amnesia, Plan communicated to team members, Discussed options with patient/fam, Discussed risks with patient/fam The patient is an appropriate candidate to undergo the planned procedure, sedation, and anesthesia. The patient immediately re-assessed prior to indication. Roger JOSUE MD Sep 14, 2022 11:34
--- NOTE | 2022-09-14 12:43 | Discharge Inst-Post CATH ---
Discharge Inst-CATH/EP Problems Reviewed?: Yes Final Diagnosis persistent afib no cad Post Cardiac Cath/EP D/C Inst Follow Up/Plan Follow up with Dr Eastman/April HESS as per previous appointment <b>CARDIAC CATH/EP PROCEDURE DISCHARGE INSTRUCTIONS</b> ACTIVITY * Go Home directly and rest. * Limit activity of the leg (or wrist if it was used) for 7 days including aerobics, swimming, jogging, bicycling, etc. * Restrict stair-climbing for 7 days if possible, if not, climb up with your non-cath leg, then bring together on the same step. * Avoid lifting, pushing, pulling or excessive movement of the affected extremity for 7 days. * Customary sexual activity may be resumed after 2 days-use caution not to use a position that strains or causes pain to the affected extremity. * No driving for 24 hours. * NO SMOKING. * Avoid straining for bowel movements for 7 days. * Gentle walking on level ground is allowed. * Returning to work will depend on the type of procedure and the results. Your doctor will discuss this with you. CALL YOUR DOCTOR FOR ANY OF THE FOLLOWING: *If bleeding from the puncture site occurs- Apply gentle pressure to site with clean cloth and call your doctor or EMS. * If a knot or lump forms under the skin, increases in size, or causes pain. * If bruising appears to be worsening or moving further down your leg instead of disappearing. * Temperature above 101 F. CARE OF YOUR GROIN INCISION; * Bruising or purple discoloration of the skin near the puncture site is common. * You may shower only, no bathtub bathing for 5 days. Be careful to avoid slipping as your leg may feel stiff. * If a closure device was used on your femoral artery, please see the attached guide regarding care of the device and your leg. * Leave dressing on FOR 24 hours. CARE OF YOUR WRIST INCISION; * Bruising or purple discoloration of the skin near the puncture site is common. * You may shower. * DO NOT submerge wrist. * Leave dressing on FOR 24 hours. Roger JOSUE MD Sep 14, 2022 12:43
[2022-09-14] MEDS ORDERED: PATIENT MAY USE OWN MEDS, ALL PO SCH (12:45)
[2022-09-14] MEDS ORDERED: NS IV 1000 ML 1,000 ML IV SCH (12:45)
--- NOTE | 2022-09-14 12:47 | Cardioversion ---
Cardioversion PROCEDURE PHYSICIAN: Lanny Sagastume MD DATE OF PROCEDURE: 09/14/22 DIRECT EXTERNAL ELECTRICAL CARDIOVERSION: Indications: Atrial Fibrillation with rapid ventricular rate Preoperative diagnoses: Atrial Fibrillation with rapid ventricular rate Postoperative diagnosis: Sinus rhythm, Successful Electrical Cardioversion History: This is a 66-year-old gentleman with shortness of breath. He has persistent atrial fibrillation and abnormal nuclear stress test. He is electively scheduled for transesophageal echocardiogram assisted cardioversion followed by coronary angiography and possible intervention. Anesthesia: By Anesthesia services Complications: None Specimen: None Contrast: 0 Flouroscopy: none Procedure Details: The patient was brought the record label intern after informed consent was taken, all the risks and complications were explained including the risk of stroke. Transesophageal echocardiogram demonstrated no left atrial or left atrial appen dage thrombus. Electrical cardioversion was carried out with anesthesia support with propofol. 200 joules of synchronized shock was delivered through external patches x3 which promptly restored sinus rhythm. The patient tolerated the procedure well. Conclusions: 1.Successful Cardioversion. 2.Continue oral anticoagulation,Amiodarone and rate controlling agent. 3.Follow up With Dr. Raiza Sagastume MD, [facility] Cardiac Electrophysiology Roger SAGASTUME MD Sep 14, 2022 12:46
--- NOTE | 2022-09-14 12:50 | Coronary Angiography Report ---
Coronary Angiography Report DATE OF PROCEDURE: 09/14/22 INDICATION: Shortness of breath, persistent atrial fibrillation, abnormal nuclear stress test. PREOPERATIVE DIAGNOSIS: Shortness of breath, persistent atrial fibrillation, abnormal nuclear stress test. POSTOPERATIVE DIAGNOSIS: Shortness of breath, persistent atrial fibrillation, abnormal nuclear stress test, Patent coronaries HISTORY: This is a 66-year-old gentleman with history of shortness of breath and persistent atrial fibrillation. He was scheduled for transesophageal echocardiogram assisted cardioversion which was successful. Patient had a recent abnormal nuclear stress test therefore coronary angiography and possible intervention was recommended. PROCEDURES PERFORMED: 1.Coronary angiography. 2.Left heart catheterization. COMPLICATIONS: None. SPECIMENS: None. ESTIMATED BLOOD LOSS: 10 mL ANESTHESIA: Conscious sedation ANTICOAGULATION: IV heparin CONTRAST: 87 ml FLUOROSCOPY: 9 minutes FLOUROSCOPY DOSE: 1347 mgy. PROCEDURE DETAILS: The patient is a 66 male and was brought to the ballistics laboratory gunsmith after informed consent was taken. All the risks and complications were explained in detail; this included the risk of bleeding, vascular damage, stroke, [place] and even . The patient was draped and prepped in the usual sterile fashion. Access was gained in the right radial artery with a 6 [place] sheath. Coronary angiography and left heart catheterization was performed with the [place] catheter. Right coronary angiogram was done with a JR4 catheter FINDINGS: 1.Left main: Patent 2.LAD: Patent. 3.Left circumflex artery: Patent. 4.RCA: Patent. Nondominant. 5.Left heart catheterization: Aortic pressure 111/70 mmHg. LV pressure 107/12 mmHg. No gradient across the aortic valve. LVEDP 17 mmHg. No wall motion abnormalities. Normal LV function. CONCLUSIONS: No significant coronary artery disease. Elevated LVEDP suggest mild to moderate diastolic dysfunction. Continue current medical therapy as per Dr. Eastman. Lanny Sagastume MD, FACP, FACC, [facility] Interventional Cardiology Roger SAGASTUME MD Sep 14, 2022 12:50
--- NOTE | 2022-09-14 13:14 | Anesthesia-General Post-Op ---
MAC Patient Condition Mental Status/LOC: Same as Preop Cardiovascular: Satisfactory Nausea/Vomiting: Absent Respiratory: Satisfactory Pain: Controlled Complications: Absent Post Op Complications Complications None Follow Up Care/Instructions Patient Instructions None needed. Anesthesiology Discharge Order Discharge Order Patient is doing well, no complaints, stable vital signs, no apparent adverse anesthesia problems. No complications reported per nursing. BORA LOCKWOOD CRNA Sep 14, 2022 13:14
[2022-09-14] MEDS ORDERED: APIXABAN 5 MG (ELIQUIS) TABLET PO SCH (21:00)
== END 2022-09-14 15:30 | disposition home or self-care (01) ==
LOC: CATH 07:39 → CSD 13:13 → CATH 15:30
PROVIDERS: ATTEND Internal Medicine Interventional Cardiology
DX: I48.19 Other persistent atrial fibrillation (principal); I48.0 Paroxysmal atrial fibrillation; I25.10 Atherosclerotic heart disease of native coronary artery without angina pectoris; I10 Essential (primary) hypertension; E78.2 Mixed hyperlipidemia; I65.23 Occlusion and stenosis of bilateral carotid arteries; R60.9 Edema, unspecified; J44.9 Chronic obstructive pulmonary disease, unspecified; N40.0 Benign prostatic hyperplasia without lower urinary tract symptoms; G47.33 Obstructive sleep apnea (adult) (pediatric); E66.01 Morbid (severe) obesity due to excess calories; I34.0 Nonrheumatic mitral (valve) insufficiency; B19.20 Unspecified viral hepatitis C without hepatic coma; Z68.41 Body mass index [BMI] 40.0-44.9, adult; Z79.01 Long term (current) use of anticoagulants; Z79.899 Other long term (current) drug therapy
CPT/HCPCS: 71045; 80053; 80061; 85027; 85610; 85730; 87081; 92960; 93005; 93312; 93458; C1769; C1894; 36415